=== PATIENT | female | born 1945 | race Caucasian/White ===

== ENCOUNTER 2020-04-25 16:43 | Emergency (ER) | payer MEDICARE, SELFPAY ==
[2020-04-25] VITALS (8 sets, daily range): BP systolic 163–197; BP diastolic 49–71; PULSE 54–67; RESP 12–20; TEMP 35.8; O2SAT 96–98
--- NOTE | ~2020-04-25 | CT_ITS ---
EXAMINATION: CT brain wo con EXAM DATE: 04/25/2020 18:28 INDICATION: Altered mental status. TECHNIQUE: Spiral CT of the head was performed without contrast. Axial, coronal and sagittal images were reviewed. The dose-length product (DLP) for this examination was 529.67 mGy-cm. The exposure w as tailored according to patient size, and iterative reconstruction (ASIR) was used as additional dos e reduction technique. There is no prior study for comparison. FINDINGS: There is no acute intraparenchymal hemorrhage. No evidence of intraparenchymal brain mass lesion. No evidence of acute infarction. Please note that initial head CT has limited sensitivity f or small or acute infarctions. There is mild to moderate periventricular and subcortical hypodensity, nonspecific but probably related to small vessel ischemic disease. There is mild to moderate promi nence of the sulci and ventricles related to cerebral atrophy. There is intracranial carotid arteri osclerosis. There are no extra-axial collections. There is no mass effect or midline shift. Patien t has had bilateral ocular lens surgery. Soft tissue is unremarkable. The visualized sinuses and ma stoid air cells are well aerated. IMPRESSION: 1. No acute intracranial findings. 2. Chronic age related findings. Reviewed, dictated and finalized at location A. LSMITH
--- NOTE | 2020-04-25 16:52 | ECG_ITS ---
Measurements Intervals [place] Rate: 57 P: 90 [place]: 188 QRS: 7 QRSD: 89 T: -74 QT: 426 QTc: 418 Interpretive Statements SINUS BRADYCARDIA BORDERLINE AV CONDUCTION DELAY CANNOT RULE OUT SEPTAL INFARCT, AGE INDETERMINATE ST-T WAVE ABNORMALITY IN INFERIOR LEADS- CONSIDER ISCHEMIA ABNORMAL ECG Electronically Signed On 04-25-2020 18:51:10 COMMUNICATIONS ATTENDANT by Niels Garcia D.O.
[2020-04-25 17:05] LABS: Basophils Absolute Auto 0.1 K/mm3 (0.0-0.1); Basophils Percent Auto 0.7 % (0.2-1.2); Eosinophils Absolute Auto 0.2 K/mm3 (0-0.3); Eosinophils Percent Auto 1.6 % (0-4.4); Hematocrit 41.7 % (37.0-47.0); Hemoglobin 13.2 g/dL (12.0-15.0); Immature Granulocyte Absolute 0.04 K/mm3 (0.00-0.031); Immature Granulocyte Percent A 0.3 % (0-0.5); Lymphocytes Absolute Auto 2.06 K/mm3 (0.9-3.2); Lymphocytes Percent Auto 17.3 % (18.3-44.2); Mean Corpuscular HGB Conc 31.7 g/dl (32-36); Mean Corpuscular Volume 88.5 fl (80-100); Mean Platelet Volume 11.9 fl (7.4-10.4); Monocytes Percent Auto 8.3 % (2.6-8.5); Neutrophils Absolute Auto 8.5 K/mm3 (1.3-6.7); Neutrophils Percent Auto 71.8 % (45.5-73.1); Platelet Count Result 218 k/mm3 (150-375); Red Blood Count 4.71 M/mm3 (4.2-5.4); Red Cell Distribution Width 13.2 % (11.5-14.5); White Blood Count 11.9 K/mm3 (4.5-10.0)
[2020-04-25 17:21] LABS: Alanine Aminotransferase 15 U/L (4-35); Albumin Level 4.6 g/dL (3.5-5.1); Alkaline Phosphatase 42 U/L (38-126); Anion Gap 9 mmol/L (8-16); Aspartate Amino Transferase 30 U/L (14-36); Bilirubin,Total 0.6 mg/dL (0.2-1.3); Blood Urea Nitrogen 14 mg/dL (7-17); Calcium 9.5 mg/dL (8.4-10.2); Carbon Dioxide 27 mmol/L (22-30); Chloride 106 mmol/L (98-107); Estimated CRCL calculation 35 ml/min; Estimated Glomerular Filt Rate 49; Glucose 51 mg/dL (65-105); Potassium 3.5 mmol/L (3.4-5.0); Sodium 142 mmol/L (137-145)
[2020-04-25] MEDS: DEXTROSE 50% 25 GM/50 ML SYRINGE IV PUSH (17:33)
--- NOTE | 2020-04-25 18:13 | ED.AMS ---
HPI - Altered Mental Status General Chief Complaint: Altered Mental Status Stated Complaint: ams Time Seen by Provider: 04/25/20 18:12 Source: patient Mode of arrival: ambulatory History of Present Illness HPI narrative: Patient 75-year-old female sent here from Dr. Zuñiga's clinic after he examined her and found her to be confused. Patient is normally alert and oriented x3. Per Dr. Zuñiga, she was not oriented to place and time, and was repeating herself . Brother states that he noticed the patient to be confused this morning. Upon arrival patient is alert and oriented x3, states that I think my blood sugar is low . Patient's blood sugar was checked on triage and it was 54. Patient was given amp of D50, on exam states that she is feeling better, family states that patient is back to her baseline self, alert and oriented x3. Patient currently has no complaints at this time. Patient denies any dizziness, headache, speech or visual disturbance, weakness, numbness, chest pain, shortness of breath, abdominal pain, nausea, vomiting, diarrhea, fever, chills or urinary symptoms. Related Data Home Medications Medication Instructions Recorded Confirmed acetaminophen 650 mg 1,300 mg PO Q12H tablet 11/19/19 04/08/20 tablet,extended release aspirin 81 mg tablet,delayed 81 mg PO DAILY 11/19/19 04/08/20 release cholecalciferol (vitamin D3) 125 125 mcg PO DAILY 11/19/19 04/08/20 mcg (5,000 unit) tablet dicyclomine 10 mg PO Q6H PRN 04/08/20 04/08/20 insulin NPH isoph U-100 human 36 unit SUBCUT BID 04/08/20 04/08/20 [Novolin N NPH U-100 Insulin] lisinopril 2.5 mg PO DAILY 04/08/20 04/08/20 Allergies Allergy/AdvReac Type Severity Reaction Status Date / Time bacitracin Allergy Intermediate FACE Verified 04/25/20 16:51 PUFFINESS neomycin Allergy Intermediate FACIAL Verified 04/25/20 16:51 PUFFINESS nickel Allergy Intermediate Unknown Verified 04/25/20 16:51 nystatin Allergy Intermediate FACIAL Verified 04/25/20 16:51 PUFFINESS polymyxin B Allergy Intermediate FACIAL Verified 04/25/20 16:51 PUFFINESS triamcinolone Allergy Intermediate Unknown Verified 04/25/20 16:51 Aminoglycosides Allergy Mild ANTIBIOTIC Verified 04/25/20 16:51 EAR DROP CAUSED RASH gramicidin D Allergy Mild FACE PUFFED Verified 04/25/20 16:51 latex Allergy Mild Rash W/ Verified 04/25/20 16:51 PROLONGED USE Review of Systems Review of Systems: All systems reviewed & are unremarkable except as noted in HPI and below Constitutional: Constitutional: Denies body ache(s), Denies chills, Denies excessive sweating, Denies fatigue, Denies fever(s), Denies headache(s), Denies lethargy, Denies malaise, Denies weakness and Denies weight loss Eyes: Eyes: Denies blurry vision, Denies change in vision and Denies loss of vision ENT: Denies dizziness, Denies ear discharge, Denies headache(s), Denies lip swelling, Denies epistaxis, Denies nasal congestion, Denies neck pain, Denies throat swelling and Denies tongue swelling Cardiovascular: Cardiovascular: Denies chest pain, Denies chest pain at rest, Denies chest pain with activity, Denies diaphoresis, Denies rapid heart rate, Denies edema, Denies irregular heart rhythm, Denies lightheadedness, Denies palpitations, Denies dyspnea and Denies dyspnea on exertion Respiratory: Respiratory: Denies chest congestion, Denies cough, Denies hemoptysis, Denies dyspnea and Denies dyspnea on exertion Gastrointestinal: Gastrointestinal: Denies abdominal pain, Denies melena, Denies hematochezia, Denies diarrhea, Denies nausea, Denies vomiting and Denies hematemesis Musculoskeletal: Musculoskeletal: Denies abnormal gait, Denies deformity, Denies joint swelling, Denies limited range of motion, Denies neck pain and Denies numbness Neurologic: Denies Abnormal speech present, Denies abnormal gait, Denies confusion, Denies dizziness, Denies headache(s), Denies focal weakness, Denies loss of vision, Denies numbne
[2020-04-25 18:24] LABS: Glucose Point of Care 164 (65-105)
--- NOTE | 2020-04-25 18:53 | PC.NURSE ---
pt eating dinner tray
--- NOTE | 2020-04-25 19:06 | PC.NURSE ---
Report to SUZANNE Beaulieu, to continue care.
[2020-04-25 20:31] LABS: Glucose Point of Care 276 (65-105)
[2020-04-25 20:38] LABS: Add Urine Microscopic? YES; Appearance Urine Cloudy (Clear); Bacteria Urine Trace /hpf; Bilirubin Urine Negative (Negative); Blood Urine Negative (Negative); Color Urine Yellow (Yellow); Glucose Urine UA 3+ mg/dL (Negative); Hyaline Casts Urine 30-49 /lpf; Ketones Urine Trace mg/dL (Negative); Leukocyte Esterase Ur 2+ LEU/UL (Negative); Mucus Urine Heavy /lpf; Nitrate Urine Negative (Negative); Protein Urine 3+ mg/dL (Negative); Renal Epithelial Cells Urine Rare /hpf (None Seen); Squamous Epithelial Cell Urine Many /hpf (Few); Urobilinogen Urine Negative mg/dL (<2.0); WBC Clumps Urine Present /HPF; WBC Urine 51-75 /hpf
[2020-04-25 20:41] LABS: Specific Grav Ur 1.035 (1.001-1.035)
[2020-04-25 21:40] LABS: Glucose Point of Care 269 (65-105)
== END 2020-04-25 22:00 | disposition home or self-care (01) ==
PROVIDERS: Emergency Provider Emergency Medicine; PCP Physician Assistant
DX: E11.649 Type 2 diabetes mellitus with hypoglycemia without coma (principal); R41.0 Disorientation, unspecified; N39.0 Urinary tract infection, site not specified; I10 Essential (primary) hypertension; Z87.891 Personal history of nicotine dependence; R00.1 Bradycardia, unspecified; R94.31 Abnormal electrocardiogram [ECG] [EKG]; Z79.82 Long term (current) use of aspirin; Z79.4 Long term (current) use of insulin
CPT/HCPCS: 36415; 70450; 80053; 81001; 82948; 85025; 87086; 87088; 93005; 96365; 96375; 99284; J0696

== ENCOUNTER 2020-09-12 12:19 | Outpatient (CLI) | payer MEDICARE, SELFPAY ==
--- NOTE | ~2020-09-12 | US_ITS ---
EXAMINATION: US carotid duplex BI DATE: 09/12/2020 13:16 INDICATION: Right carotid bruit. TECHNIQUE: Grayscale, color Doppler, and pulsed Doppler images of the cervical carotid arteries were obtained. The degree of vessel stenosis is placed in one of the following categories: normal, <50%, 5 0-69%, >=70% but less than near-occlusion, near-occlusion, or total occlusion. Note that percent sten osis relative to normal distal artery lumen diameter is indirectly measured from velocity measurement s as described by Hola, et al. Radiology 2003; 229:340-346. COMPARISON: Ultrasound 04/06/2011 FINDINGS: RIGHT: The right common carotid artery (CCA) peak systolic velocity (PSV) is 56 cm/s. The right internal car otid artery (ICA) PSV is 49 cm/s. The right ICA end-diastolic velocity (EDV) is 8 cm/s. The right ICA /CCA PSV ratio is 0.9. Grayscale and color Doppler images yield an estimate of <50% diameter reductio n from plaque in the ICA. There is antegrade flow in the right vertebral artery. LEFT: The left CCA PSV is 106 cm/s. The left ICA PSV is 127 cm/s. The left ICA EDV is 15 cm/s. The left ICA /CCA PSV ratio is 1.2. Grayscale and color Doppler images yield an estimate of >=50% diameter reducti on from plaque in the ICA. There is antegrade flow in the left vertebral artery. IMPRESSION: 1. <50% stenosis in the right internal carotid artery. 2. 50-69% stenosis in the left internal carotid artery. Reviewed, dictated and finalized at location A.
== END 2020-09-12 12:20 | disposition home or self-care (01) ==
PROVIDERS: PCP Physician Assistant; Visit Provider Internal Medicine Cardiovascular Disease
DX: R09.89 Other specified symptoms and signs involving the circulatory and respiratory systems (principal); I65.23 Occlusion and stenosis of bilateral carotid arteries
CPT/HCPCS: 93880

== ENCOUNTER 2020-10-14 01:42 | Day surgery (SDC) | payer MEDICARE, SELFPAY ==
[2020-10-13 12:27] VITALS: BMI 28.0
[2020-10-14 10:34] VITALS: BP 160/63; PULSE 64; RESP 15; TEMP 36.6; O2SAT 98; BMI 26.4
--- NOTE | 2020-10-14 11:07 | WPDHPUPDATE1 ---
History and Physical Update Update Date/Time: 10/14/20 11:07 History and Physical has been reviewed, including an updated exam of the patient. There are NO changes in the patient's condition. Risks, benefits, and alternatives have been discussed and questions answered. Patient agrees to proceed with procedure. HPI: Patient is a 75-year-old female with history of coronary artery disease, frequent falls, syncope and near syncope, diabetes mellitus, hypertension, history of CABG, chronic kidney disease with recent medical records supervisor due to syncope which revealed multiple 2.2nd pauses, frequent PVCs, nonsustained VT and transient junctional rhythm Referred for loop recorder implantation. Past medical history: See above social history: History tobacco abuse family history: CAD diabetes mellitus review of systems: All 12 systems reviewed. No recurrent syncope since last office visit examination: 97.8, 64, 15, 98% on room air, 160/63, 5 ft 3 in tall 158 lb 67.7 kg no apparent distress, nonfocal, alert and oriented x3 pleasant and cooperative lungs clear to auscultation regular rate and rhythm normal S1-S2 abdomen soft nontender no edema clubbing or cyanosis skin warm dry without rashes or bruising neurologic cranial nerves 2-12 grossly intact examination grossly nonfocal psychiatric mood, appropriate impression/plan of care: Recurrent near-syncope and syncope etiology unclear with concern for bradyarrhythmia. Loop recorder implantation for further evaluation today.
--- NOTE | 2020-10-14 11:28 | P.OPB_ITS ---
Procedure Note - Brief Procedure Note - Brief Date of procedure: 10/14/20 Pre-op diagnosis: syncope Post-op diagnosis: same Procedure performed: Brief history present illness: Patient is a Very pleasant 75-year-old female with past medical history significant for diabetes mellitus, CAD status post CABG, hypertension, dyslipidemia, chronic kidney disease, and recurrent near-syncope and syncope with a nuclear monitoring technician which revealed multiple 2.8 second pauses, frequent PVCs, and brief junctional rhythm referred for loop recorder implantation for further evaluation. After verbal and written informed consent was obtained from the patient risks, benefits, and alternatives explained in detail the patient agreed to proceed with the plan of care as outlined above. Patient was evaluated at bedside in the [facility] procedure room. Patient was placed the appropriate supine position. Left anterior chest wall was prepped and draped in the usual sterile fashion. Operators in appropriate sterile garb. The left 4th intercostal space was identified and marked. Utilizing approximately 27 cc of 1% subcutaneous lidocaine the left anterior chest wall was then locally anesthetized. After local anesthesia was achieved, 2 fingerbreadths left of the sternum at the 4th intercostal space was again identified and a 1 cm incision was made with the included skin punch tool. Following this, the Biotronik deployment device was introduced creating a tract subcutaneously at a 45 degree angle from the sternum. Once the device was in recommended position, it was unlocked and deployment plunger was pulled back fully resulting in delivery of the Biotronik Biomonitor IIIm loop recorder SN [id number]. The deployment device was then removed easily and without complication. Manual pressure was help per protocol for at least 10 minutes with satisfactory hemostasis. The device was then interrogated and revealed excellent fidelity and measured at 1.3 mV, device Payment Manager at bedside programmed for syncope and bradyarrhythmia detection. The incision was then approximated and closed using Exofin skin adhesive. The incision was then covered with a sterile dressing. Complications: None Surgeon: Tomas Zuñiga MD
--- NOTE | 2020-10-14 11:42 | SUR.OPER ---
Time out completed with all team members in procedure room. Local anesthetic injected under skin after site is marked. 27ml of Lidocaine. Device inserted. Manual pressure applied to site.
--- NOTE | 2020-10-14 11:56 | SUR.OPER ---
Pt tolerated procedure well. Manual pressure in progress.
--- NOTE | 2020-10-14 12:10 | SUR.OPER ---
manual pressure completed. No oozing or hematoma noted. Skin glue applied to close site. followed by large bandaid over site.
[2020-10-14 12:15] VITALS: BP 169/93; PULSE 60; RESP 15; O2SAT 95
--- NOTE | 2020-10-14 13:14 | SUR.OPER ---
Discharge instructions along with follow up appointment reviewed with patient w stated understanding. Drsg remains dry and intact with no signs of bleeding or hematoma. Discharge via wheelchair with sister in law to personal vehicle.
== END 2020-10-14 13:31 | disposition home or self-care (01) ==
PROVIDERS: PCP Physician Assistant; Visit Provider Internal Medicine Cardiovascular Disease
PROC: (CPT 33285; principal; 2020-10-14 11:30)
DX: R55 Syncope and collapse (principal); I25.10 Atherosclerotic heart disease of native coronary artery without angina pectoris; Z95.1 Presence of aortocoronary bypass graft; I12.9 Hypertensive chronic kidney disease with stage 1 through stage 4 chronic kidney disease, or unspecified chronic kidney disease; E11.22 Type 2 diabetes mellitus with diabetic chronic kidney disease; N18.9 Chronic kidney disease, unspecified
CPT/HCPCS: 33285; C1764

== ENCOUNTER 2021-03-10 12:23 | Outpatient (CLI) | payer MEDICARE, SELFPAY ==
--- NOTE | ~2021-03-10 | CT_ITS ---
EXAMINATION:CT lung screening DATE: 03/10/2021 12:51 INDICATION: Personal history of nicotine dependence. Smoker who quit 5 years ago with 80 pack year hi story. TECHNIQUE: Computed tomography (CT) of the chest was performed without intravenous contrast. Automate d exposure control and iterative reconstruction technique were employed. The dose-length product (DLP ) was 71.02 mGy-cm. COMPARISON: Chest CT 06/10/2018 FINDINGS: There are small pleural effusions. There is widespread septal thickening in the lungs with a peripheral and lower lung predominance with interval worsening. There is mild atelectasis in lingul a. Cardiomegaly is noted. There are coronary artery calcifications. There are changes of coronary art tylor bypass grafting. No pericardial effusion. There is an electronic implant in the subcutaneous fat in left anterior chest wall. There is a moderate-sized sliding hiatal hernia. There is severe thoraci c spondylosis. IMPRESSION: 1. Lung-RADS category 2S: Benign appearance or behavior. Continue annual screening with noncontrast l ow-dose chest CT in 12 months. 2. Mild pulmonary edema and small pleural effusions. 3. Moderate-sized sliding hiatal hernia. Reviewed, dictated and finalized at location B. WINDING SUPERVISOR IMPRESSION: 1. Lung-RADS category 2S: Benign appearance or behavior. Continue annual screen ing with noncontrast low-dose chest CT in 12 months. 2. Mild pulmonary edema and small pleural effusions. 3. Moderate-sized sliding hiatal hernia.
[2021-03-10 13:10] VITALS: PULSE 58; O2SAT 91
[2021-03-10 13:12] VITALS: PULSE 69; O2SAT 85
[2021-03-10 13:13] VITALS: O2SAT 86
[2021-03-10 13:14] VITALS: O2SAT 90
[2021-03-10 13:25] VITALS: PULSE 63; O2SAT 92
--- NOTE | 2021-03-10 13:59 | HOMEO2EVAL ---
Evaluation was performed at [facility] Home Oxygen Evaluation RC: Home Oxygen (O2) Evaluation Start: 03/10/21 13:57 Freq: Status: Active Protocol: RPE Activity Type Activity Date Activity User E-Sign Co-Sign Detail Recorded Client Recorded Date Recorded By Document 03/10/21 13:10 J CARLOS [id number] 03/10/21 13:59 J CARLOS Document 03/10/21 13:12 J CARLOS [id number] 03/10/21 13:59 J CARLOS Document 03/10/21 13:13 J CARLOS [id number] 03/10/21 13:59 [facility] Document 03/10/21 13:14 J CARLOS [id number] 03/10/21 13:59 J CARLOS Document 03/10/21 13:25 J CARLOS [id number] 03/10/21 13:59 J CARLOS 03/10/21 03/10/21 03/10/21 13:10 13:12 13:13 Home O2 Evaluation Test Phase Resting Exercise Exercise Oxygen Delivery Room Air Room Air Nasal Cannula Oxygen Flow Rate (L/min) 1 Pulse Oximetry (90-100 %) 91 85 L 86 L Pulse Rate (60-100 beats/min) 58 L 69 Ambulation Distance (feet) Home Oxygen Evaluation Comments Treatment Charges O2 Evaluation - Outpatient 03/10/21 03/10/21 13:14 13:25 Home O2 Evaluation Test Phase Exercise Resting Oxygen Delivery Nasal Cannula Room Air Oxygen Flow Rate (L/min) 2 Pulse Oximetry (90-100 %) 90 92 Pulse Rate (60-100 beats/min) 63 Ambulation Distance (feet) 250 Home Oxygen Evaluation Comments PT REQUIRES 2 L WITH ACTIVITY/ EXERTION Treatment Charges
--- NOTE | 2021-03-10 14:00 | PCRCNOTE ---
HOME O2 EVAL FAXED TO OFFICE STAFF, NEW SET UP FOR 2L WITH ACTIVITY. CURRENTLY ONLY HAS O2 AT NIGHT WITH SLEEP
--- NOTE | 2021-03-11 07:10 | WPDPFTINT ---
PFT Procedure Performed PFT Procedure Performed Spirometry with Pre/Post Bronchodilator Plethysmography (Lung Vol) Diffusing Cap (DLCO) Flow Vol Loop PFT Interpretation This is a pulmonary function test with pre and post-bronchodilator spirometry, plethysmography and diffusing capacity. The test was performed and results interpreted in accordance with the 2019 and 2005 ATS/ERS Task Force guidelines respectively using the Global Lung Function Initiative-2012 reference equations. Patient demonstrated good effort and cooperation. Reproducibility criteria were met. The quality of the pre bronchodilator spirometry maneuver was Grade A and post bronchodilator spirometry maneuver was Grade A. Findings: Spirometry: There is decreased maximal expiratory airflow at low lung volumes with a concave expiratory flow tracing. The pre bronchodilator FVC is 1.53 L, 66% predicted. The pre bronchodilator FEV1 is 1.08 L, 60% predicted. The FEV1: FVC ratio 70%. The post bronchodilator FVC is 1.53 L, representing no change. The post bronchodilator FEV1 is 1.12 L, representing a 4% increase. The post bronchodilator FEV1: FVC ratio 73%. Plethysmography: The total lung capacity is 2.98 L, 67% predicted. Functional residual capacity is 1.72 L, 68% predicted. The residual volume is 1.37 L, 66% predicted. Diffusing capacity: The absolute diffusion capacity is 8.3, 45% predicted. The diffusing capacity corrected for alveolar volume is 3.81, 87% predicted. Impression: There is a combined obstructive and restrictive ventilatory abnormality. There are no guidelines to assign the severity of obstruction and restriction with a combined abnormality. In my opinion, given the mildly concave expiratory flow tracing and low normal FEV1: FVC ratio and mild restrictive abnormality I would state there is a mild obstructive abnormality and a mild restrictive abnormality resulting in a moderately decreased FEV1. There is no significant improvement after inhaling a single dose of albuterol. The absolute diffusing capacity is moderately decreased and normalizes when corrected for alveolar volume. There are no prior studies for comparison
== END 2021-03-10 12:24 | disposition home or self-care (01) ==
PROVIDERS: PCP Internal Medicine; Visit Provider Internal Medicine Pulmonary Disease
DX: Z12.2 Encounter for screening for malignant neoplasm of respiratory organs (principal); Z87.891 Personal history of nicotine dependence
CPT/HCPCS: 71271; 94060; 94618; 94726; 94729

== ENCOUNTER 2021-03-11 10:04 | Outpatient (CLI) | payer MEDICARE, SELFPAY ==
[2021-03-11 11:32] LABS: Rheumatoid Factor < 8.6 IU/ML (<12)
[2021-03-14 17:30] LABS: ANA Cascade Screen Negative (Negative)
[2021-03-14 22:38] LABS: ANCA Screen Negative (Negative)
[2021-03-16 12:46] LABS: Anti Cyclic Citrullinated Pept <16 Units (<20)
== END 2021-03-11 10:05 | disposition home or self-care (01) ==
PROVIDERS: PCP Internal Medicine; Visit Provider Internal Medicine Pulmonary Disease
DX: R06.00 Dyspnea, unspecified (principal); J84.9 Interstitial pulmonary disease, unspecified
CPT/HCPCS: 36415; 86021; 86038; 86200; 86331; 86430; 86606; 86609

== ENCOUNTER 2021-04-27 08:55 | Outpatient (CLI) | payer MEDICARE, SELFPAY ==
--- NOTE | 2021-05-04 21:20 | WPDSLEEPSTUD ---
Sleep Study Date of Study: 04/27/21 <Mercedes Guan DO - Last Filed: 05/05/21 15:15> Ordering Provider: Lobo Marin MD <Mercedes Guan DO - Last Filed: 05/05/21 15:15> Interpreting Physician: Mercedes Guan DO <Mercedes Guan DO - Last Filed: 05/05/21 15:15> Sleep Study Type: Split Polysomnogram <Mercedes Guan DO - Last Filed: 05/05/21 15:15> Height: 1.52 m <Mercedes Guan DO - Last Filed: 05/05/21 15:15> Weight: 62.596 kg <Mercedes Guan DO - Last Filed: 05/05/21 15:15> Body Mass Index: 26.9 <Mercedes Guan DO - Last Filed: 05/05/21 15:15> Neck Circumference (inches): 14.5 <Mercedes Guan DO - Last Filed: 05/05/21 15:15> [place]: 9 <Mercedes Guan DO - Last Filed: 05/05/21 15:15> Reason for Sleep Study Daytime hypersomnia, nocturnal hypoxemia <Mercedes Guan DO - Last Filed: 05/05/21 15:15> Sleep History The patient is a 76 y/o female with HTN, COPD, Type 2 diabetes, severe pulmonary hypertension, coronary artery disease, valvular heart disease, depression, anxiety and history of tobacco use that had a sleep study ordered by her masking machine feeder due to nocturnal hypoxemia. The patient occasionally awakens at night with heartburn, belching or cough. She occasionally snores. She rarely has trouble sleeping when she has a cold. She denies waking up gasping for air throughout the night. She denies having breathing problems at night observed by others. She rarely sweats excessively at night. She rarely notices heart palpitations or irregular heartbeats during the night. She frequently falls asleep during the day but never while driving. She denies sleep paralysis, cataplexy and hypnagogic / hypnopompic hallucinations. She denies having nightmares. She occasionally has thoughts racing through her mind. She occasionally feels sad or depressed. She occasionally has anxiety. She rarely notices parts of her body jerk. She denies kicking throughout the night. She occasionally has crawling aching feelings in her legs as well as leg pain during the night. She denies grinding her teeth during sleep and awakening with morning jaw pain. She is occasionally bothered by pain during the day and occasionally awakened by pain during the night. She rarely wakes up feeling stiff in the morning. She rarely wakes up with [place] achy muscles. She occasionally wakes up with pain in the neck, spine and other joints. She goes to bed at 11:00 p.m. on weekdays and midnight on the weekends. It takes her at least an hour to fall asleep. She wakes up once or twice throughout the night for unknown reasons. When she awakens, she will try to go back to sleep. It takes her about an hour to fall back asleep. She wakes up between 7 and 8:00 a.m. on both weekdays and weekends. She typically gets between 8 and 9 hours of sleep per night. She does not stay in bed long after waking up in the morning. She currently lives alone. She denies consuming any caffeinated beverages and within 2 hours of bedtime. She does not engage in physical exercise before bedtime. She will read and watch television before falling asleep. She does take naps in the afternoon or the evening but they are not refreshing. She drinks 1 caffeinated beverage per day. She denies tobacco, alcohol and recreational drug use. <Mercedes Guan DO - Last Filed: 05/05/21 15:15> [facility] Past Medical History Medical History: Medical History Benign tumor Carpal tunnel syndrome, bilateral upper limbs COPD (chronic obstructive pulmonary disease) Hypertension Type 2 diabetes mellitus with hyperglycemia <Mercedes Guan DO - Last Filed: 05/05/21 15:15> Surgical History Surgical History: Surgical History History of appendectomy His
[2021-05-05 15:15] VITALS: BMI 26.9
== END 2021-04-28 06:49 | disposition home or self-care (01) ==
PROVIDERS: PCP Internal Medicine; Visit Provider Internal Medicine Pulmonary Disease
DX: G47.33 Obstructive sleep apnea (adult) (pediatric) (principal); G47.10 Hypersomnia, unspecified; R94.2 Abnormal results of pulmonary function studies
CPT/HCPCS: 95811

== ENCOUNTER 2021-05-30 13:52 | Observation (INO) | payer MEDICARE, SELFPAY ==
--- NOTE | ~2021-05-30 | XR_ITS ---
EXAMINATION: XR hip RT 2V w AP pelvis DATE: 05/30/2021 14:44 INDICATION: Right hip pain. Fall. TECHNIQUE: An anteroposterior view of the pelvis and 2 views of right hip were obtained. COMPARISON: None. FINDINGS: Bone alignment is normal. There is a fracture of the greater trochanter of proximal right f emur with 3 mm displacement. There is mild osteoarthritis of the hips. There is severe lower lumbar s pondylosis. IMPRESSION: 1. Fracture of greater trochanter of proximal right femur. 2. Mild osteoarthritis of the hips. Reviewed, dictated and finalized at location E. TRUCTION PROJECT MANAGER
--- NOTE | ~2021-05-30 | XR_ITS ---
EXAMINATION: XR knee RT 3V DATE: 05/30/2021 14:44 INDICATION: Right knee pain. Fall. TECHNIQUE: 3 views of right knee were obtained. COMPARISON: None. FINDINGS: Bone alignment is normal. No fracture. There is moderate osteoarthritis of medial compartme nt and mild osteoarthritis of lateral and patellofemoral compartments. No knee joint effusion. IMPRESSION: 1. Moderate right knee osteoarthritis. Reviewed, dictated and finalized at location E. ITTER CABIN
--- NOTE | ~2021-05-30 | US_ITS ---
EXAMINATION: US carotid duplex BI DATE: 06/01/2021 13:39 INDICATION: Syncope. TECHNIQUE: Grayscale, color Doppler, and pulsed Doppler images of the cervical carotid arteries were obtained. The degree of vessel stenosis is placed in one of the following categories: normal, <50%, 5 0-69%, >=70% but less than near-occlusion, near-occlusion, or total occlusion. Note that percent sten osis relative to normal distal artery lumen diameter is indirectly measured from velocity measurement s as described by Hola, et al. Radiology 2003; [id number]:[id number]. COMPARISON: Ultrasound 09/12/2020 FINDINGS: RIGHT: The right common carotid artery (CCA) peak systolic velocity (PSV) is 178 cm/s. The right internal ca rotid artery (ICA) PSV is 67 cm/s. The right ICA end-diastolic velocity (EDV) is 11 cm/s. The right I CA/CCA PSV ratio is 0.4. Grayscale and color Doppler images yield an estimate of <50% diameter reduct ion from plaque in the ICA. There is antegrade flow in the right vertebral artery. LEFT: The left CCA PSV is 108 cm/s. The left ICA PSV is 149 cm/s. The left ICA EDV is 10 cm/s. The left ICA /CCA PSV ratio is 1.4. Grayscale and color Doppler images yield an estimate of <50% diameter reductio n from plaque in the ICA. There is antegrade flow in the left vertebral artery. IMPRESSION: 1. <50% stenosis in the right internal carotid artery. 2. <50% stenosis in the left internal carotid artery. Reviewed, dictated and finalized at location A. ONAL MERCHANDISING MANAGER
--- NOTE | ~2021-05-30 | XR_ITS ---
EXAMINATION: XR chest 1V portable DATE: 05/30/2021 17:14 INDICATION: Chest pain. TECHNIQUE: A single frontal view of the chest was obtained. COMPARISON: Chest 2 views 06/10/2018, chest CT 03/10/2021 FINDINGS: There is a diffuse interstitial pattern in the lungs, consistent with mild pulmonary edema. No pleural effusion or pneumothorax. Cardiomegaly is noted. Median sternotomy wires are noted. There is an electronic implant overlying left chest. IMPRESSION: 1. Mild pulmonary edema. 2. Cardiomegaly. Reviewed, dictated and finalized at location E. UNT CLASSIFICATION CLERK
[2021-05-30 13:59] VITALS: BP 162/66; PULSE 70; RESP 18; TEMP 36.4; O2SAT 97
--- NOTE | 2021-05-30 14:48 | ED.FALL ---
HPI - Fall General Chief Complaint: Fall Stated Complaint: fall, right hip pain Time Seen by Provider: 05/30/21 13:56 Source: patient Mode of arrival: wheelchair Limitations: no limitations History of Present Illness HPI Narrative: Patient is a 76-year-old female complaining of right hip and right knee pain after she lost her balance and fell backwards 3 days ago. Patient states her pain is mild, worse with movement and walking. Patient states that she was able to stand up with the help of a relative, and walk with her walker. Patient denies any head, neck, chest, abdomen, back or any other extremity pain/injury. Related Data Home Medications Medication Instructions Recorded Confirmed acetaminophen 650 mg 1,300 mg PO Q12H tablet 11/19/19 04/08/21 tablet,extended release aspirin 81 mg tablet,delayed 81 mg PO DAILY 11/19/19 04/08/21 release cholecalciferol (vitamin D3) 125 125 mcg PO DAILY 11/19/19 04/08/21 mcg (5,000 unit) tablet dicyclomine 10 mg PO Q6H PRN 04/08/20 04/08/21 insulin NPH isoph U-100 human 20 unit SUBCUT [facility] 04/08/20 04/08/21 [Novolin N NPH U-100 Insulin] Allergies Allergy/AdvReac Type Severity Reaction Status Date / Time bacitracin Allergy Intermediate FACE Verified 05/30/21 14:04 PUFFINESS neomycin Allergy Intermediate FACIAL Verified 05/30/21 14:04 PUFFINESS nickel Allergy Intermediate Unknown Verified 05/30/21 14:04 nystatin Allergy Intermediate FACIAL Verified 05/30/21 14:04 PUFFINESS polymyxin B Allergy Intermediate FACIAL Verified 05/30/21 14:04 PUFFINESS triamcinolone Allergy Intermediate Unknown Verified 05/30/21 14:04 Aminoglycosides Allergy Mild ANTIBIOTIC Verified 05/30/21 14:04 EAR DROP CAUSED RASH gramicidin D Allergy Mild FACE PUFFED Verified 05/30/21 14:04 latex Allergy Mild Rash W/ Verified 05/30/21 14:04 PROLONGED USE Review of Systems Review of Systems: All systems reviewed & are unremarkable except as noted in HPI and below Constitutional: Constitutional: Denies body ache(s), Denies chills, Denies excessive sweating, Denies fatigue, Denies fever(s), Denies headache(s), Denies lethargy, Denies malaise, Denies weakness and Denies weight loss Eyes: Eyes: Denies blurry vision, Denies change in vision and Denies loss of vision ENT: Denies dizziness, Denies ear discharge, Denies headache(s), Denies lip swelling, Denies epistaxis, Denies nasal congestion, Denies neck pain, Denies throat swelling and Denies tongue swelling Cardiovascular: Cardiovascular: Denies chest pain, Denies chest pain at rest, Denies chest pain with activity, Denies diaphoresis, Denies rapid heart rate, Denies edema, Denies irregular heart rhythm, Denies lightheadedness, Denies palpitations, Denies dyspnea and Denies dyspnea on exertion Respiratory: Respiratory: Denies chest congestion, Denies cough, Denies hemoptysis, Denies dyspnea and Denies dyspnea on exertion Gastrointestinal: Gastrointestinal: Denies abdominal pain, Denies melena, Denies hematochezia, Denies diarrhea, Denies nausea, Denies vomiting and Denies hematemesis Musculoskeletal: Musculoskeletal: Denies deformity, Denies joint swelling, Denies neck pain and Denies numbness Neurologic: Denies Abnormal speech present, Denies abnormal gait, Denies confusion, Denies dizziness, Denies headache(s), Denies focal weakness, Denies loss of vision, Denies numbness, Denies Other visual disturbances, Denies Sensory deficit (Neuro) and Denies weakness Psychiatric: Psychiatric: Denies confusion, Denies depression, Denies auditory hallucinations, Denies homicidal ideation and Denies suicidal ideation Endocrine: Endocrine: Denies cold intolerance, Denies excessive sweating, Denies fatigue, Denies heat intolerance and Denies palpitations Hematologic/Lymphatic: Hematologic/Lymphatic: Denies easy bleeding and Denies easy bruising Allergic/Immunologic: Allergic/Immunologic: Denies lip swelling, Denies throat swelling and Rafi
[2021-05-30] MEDS: KETOROLAC 30 MG/ML VIAL (*BKC) 15 MG IM (15:03)
[2021-05-30] MEDS: ACETAMINOPHEN 325 MG TABLET 650 MG PO (15:04)
[2021-05-30 16:00] VITALS: BP 149/62; PULSE 66; RESP 18; O2SAT 96
--- NOTE | 2021-05-30 16:56 | ECG_ITS ---
Measurements Intervals [place] Rate: 84 P: 76 ND: 165 QRS: -16 QRSD: 95 T: 47 QT: 372 QTc: 441 Interpretive Statements SINUS RHYTHM MINIMAL Q WAVES- HIGH LATERAL LEADS BORDERLINE ECG Electronically Signed On 05-30-2021 20:09:42 DIRECTOR INTERNAL AUDIT by Niels Garcia D.O.
[2021-05-30 17:24] LABS: Basophils Absolute Auto 0.1 K/mm3 (0.0-0.1); Basophils Percent Auto 0.6 % (0.2-1.2); Eosinophils Absolute Auto 0.1 K/mm3 (0-0.3); Eosinophils Percent Auto 1.5 % (0-4.4); Hematocrit 35.6 % (37.0-47.0); Hemoglobin 11.5 g/dL (12.0-15.0); Immature Granulocyte Absolute 0.02 K/mm3 (0.00-0.031); Immature Granulocyte Percent A 0.3 % (0-0.5); Lymphocytes Absolute Auto 0.99 K/mm3 (0.9-3.2); Lymphocytes Percent Auto 12.5 % (18.3-44.2); Mean Corpuscular HGB Conc 32.3 g/dl (32-36); Mean Corpuscular Hemoglobin 28.8 pg (26-34); Mean Platelet Volume 12.3 fl (7.4-10.4); Monocytes Absolute Auto 0.8 K/mm3 (0.1-0.6); Monocytes Percent Auto 9.8 % (2.6-8.5); Neutrophils Percent Auto 75.3 % (45.5-73.1); Platelet Count Result 126 k/mm3 (150-375); Red Cell Distribution Width 13.7 % (11.5-14.5); White Blood Count 7.9 K/mm3 (4.5-10.0)
[2021-05-30 17:33] LABS: Anion Gap 3 mmol/L (8-16); Blood Urea Nitrogen 12 mg/dL (7-17); Calcium 9.2 mg/dL (8.4-10.2); Carbon Dioxide 28 mmol/L (22-30); Chloride 103 mmol/L (98-107); Estimated CRCL calculation 43 ml/min; Estimated Glomerular Filt Rate > 60; Glucose 123 mg/dL (65-110); Potassium 3.8 mmol/L (3.4-5.0); Sodium 134 mmol/L (137-145)
[2021-05-30 17:45] VITALS: BP 175/78; PULSE 64; RESP 18; O2SAT 97
[2021-05-30] MEDS: LACTATED RINGERS 1,000 ML 80 ML IV CONT (18:06)
--- NOTE | 2021-05-30 18:45 | ADMGEN ---
This patient, Beatris Barrientos, was admitted to 2 Medical Room 255-01. Patient/family oriented to hospital policies and general routines including ID bracelet, bed and alarms, visiting hours, pain management, procedures, bathroom and other care routines, personal items, smoking policy, room service/diet, and visiting hours. Information on how to activate the Rapid Response Team has been discussed. Patient/Family are encouraged to report perceived risks to care and to ask questions if they do not understand what they are told or what they should do.
[2021-05-30 19:26] VITALS: BP 157/48; PULSE 67; RESP 19; TEMP 36.4; O2SAT 97
--- NOTE | 2021-05-30 23:55 | PM.IMHP ---
H&P: HPI History of Present Illness Date/Time: 05/30/21 23:55 this is a 76-year-old female patient who has a loop recorder. The patient stated that she has a history of passing out. She does see Dr. Glaser as her hog tender. The patient came to the emergency room because of a fall. She was complaining of right hip pain and right knee pain. She has a right elbow abrasion as well. The patient stated that she lost her balance but did not pass out. She stated she did not hit her head. She stated that she fell backwards approximately 3 days ago. She was walking with a cane and that the pain was mild but worse with movement and walking. She was able to stand up with help of her relative and walk with a walker. She denied any other injuries than the ones mentioned above. She is alert and orientated x3. She is not on any blood thinners and denies hitting her head. Since the patient is alert orientated x3 and this occurred [address] of the brain was opted out at this time. Chest x-ray was read as mild pulmonary edema. Cardiomegaly. Knee x-ray was read as moderate right knee osteoarthritis. Hip and pelvis x-ray was read as fracture of greater trochanter of proximal right femur. Mild osteoarthritis of the hips. H&H 11.5 and 35.6. Patient's blood sugars 123. Ortho has been consulted. The patient is being admitted to observation on the date of service of 05/31/2021. Chief Complaint: Fall with right hip pain Review of Systems Review of Systems: All systems reviewed & are unremarkable except as noted in HPI and below Constitutional: Constitutional: Reports as per HPI and Reports no additional constitutional complaints Eyes: Eyes: Reports as per HPI and Reports no additional eye complaints ENT: Reports system reviewed and no additional complaints, except as documented and Reports Normal hearing present Cardiovascular: Cardiovascular: Reports no additional cardiovascular complaints Respiratory: Respiratory: Reports no additional respiratory complaints and Reports no additional respiratory complaints Gastrointestinal: Gastrointestinal: Reports as per HPI and Reports no additional gastrointestinal complaints Musculoskeletal: Musculoskeletal: Reports no additional musculoskeletal complaints Integumentary/Breasts: Skin/Breast: Reports system reviewed and no additional complaints, except as docu and Reports as per HPI Neurologic: Reports system reviewed and no additional complaints, except as documented, Reports as per HPI and Reports Normal hearing present Psychiatric: Psychiatric: Reports no additional psychiatric complaints and Reports as per HPI Endocrine: Endocrine: Reports no additional endocrine complaints Hematologic/Lymphatic: Hematologic/Lymphatic: Reports no additional hematologic/lymphatic complaints Allergic/Immunologic: Allergic/Immunologic: Reports no additional allergic/immunologic complaints [facility] Past Medical History Medical History (Updated 05/31/21 @ 00:04 by Lita Gonzalez NP) Benign tumor Care for low for the OR heart av [place] get injection placed a phone whole graft chest Foot ALL RA can restart her she could start her 1 g 24 hours a I for primary told me to come in likes to told me it noon and chest x-ray hernia. Today the HR take the patient's C1 patient the day after leave at 1:30 a.m. get the pager back the police the calices like a show when she tells just some the entire work 1 of the year what lysis and also like I can admit acute I can admit I the FMLA 5 ft the new file for FMLA but after me appoint for 12 months for FMLA with Carpal tunnel syndrome, bilateral upper limbs COPD (chronic obstructive pulmonary disease) Hypertension Type 2 diabetes mellitus with hyperglycemia Surgical History Surgical History (Updated 05/31/21 @ 00:16 by Lita Gonzalez NP) History of appendectomy History of carpal tunnel release History of cholecystectomy History of loop recorder History of quadruple by
[2021-05-31] VITALS (7 sets, daily range): BP systolic 142–176; BP diastolic 60–78; PULSE 72–76; RESP 14–20; TEMP 36.4–36.9; O2SAT 93–96
[2021-05-31 00:09] LABS: Glucose Point of Care 215 mg/dl (65-105)
[2021-05-31 00:53] LABS: Add Urine Microscopic? YES; Appearance Urine Clear (Clear); Bilirubin Urine Negative (Negative); Blood Urine Negative (Negative); Color Urine Yellow (Yellow); Glucose Urine UA Negative (Negative); Ketones Urine Negative (Negative); Leukocyte Esterase Ur Negative LEU/UL (NEGATIVE); Mucus Urine Rare /lpf; Nitrate Urine Negative (Negative); Protein Urine 3+ mg/dL (Negative); RBC Urine 0-2 /hpf (0-2); Specific Grav Ur 1.016 (1.001-1.035); Squamous Epithelial Cell Urine Few /hpf (Few); Urobilinogen Urine Negative mg/dL (<2.0)
[2021-05-31 05:09] LABS: Basophils Percent Auto 0.5 % (0.2-1.2); Eosinophils Absolute Auto 0.2 K/mm3 (0-0.3); Eosinophils Percent Auto 2.4 % (0-4.4); Hematocrit 32.9 % (37.0-47.0); Hemoglobin 10.7 g/dL (12.0-15.0); Immature Granulocyte Absolute 0.02 K/mm3 (0.00-0.031); Immature Granulocyte Percent A 0.3 % (0-0.5); Lymphocytes Absolute Auto 0.89 K/mm3 (0.9-3.2); Lymphocytes Percent Auto 14.2 % (18.3-44.2); Mean Corpuscular HGB Conc 32.5 g/dl (32-36); Mean Corpuscular Hemoglobin 28.3 pg (26-34); Mean Platelet Volume 12.5 fl (7.4-10.4); Monocytes Absolute Auto 0.7 K/mm3 (0.1-0.6); Monocytes Percent Auto 11.2 % (2.6-8.5); Neutrophils Absolute Auto 4.5 K/mm3 (1.3-6.7); Neutrophils Percent Auto 71.4 % (45.5-73.1); Platelet Count Result 118 k/mm3 (150-375); Red Blood Count 3.78 M/mm3 (4.2-5.4); Red Cell Distribution Width 13.7 % (11.5-14.5); White Blood Count 6.3 K/mm3 (4.5-10.0)
[2021-05-31 05:28] LABS: Alanine Aminotransferase 11 U/L (4-35); Albumin Level 3.6 g/dL (3.5-5.1); Alkaline Phosphatase 39 U/L (38-126); Anion Gap 7 mmol/L (8-16); Aspartate Amino Transferase 21 U/L (14-36); Bilirubin,Total 0.8 mg/dL (0.2-1.3); Blood Urea Nitrogen 14 mg/dL (7-17); CRP 4.5 mg/dL (<1.0); Carbon Dioxide 28 mmol/L (22-30); Chloride 100 mmol/L (98-107); Estimated CRCL calculation 43 ml/min; Estimated Glomerular Filt Rate > 60; Glucose 156 mg/dL (65-110); Lactate Dehydrogenase 661 U/L (313-618); Lipase 44 U/L (23-300); Magnesium 1.6 mg/dL (1.6-2.3); Potassium 3.8 mmol/L (3.4-5.0); Sodium 135 mmol/L (137-145)
[2021-05-31] MEDS: HYDROmorphone HCL INJ (*CRX) 1 MG/ML SYR 0.5 MG IV PUSH ×2 (05:36→21:31)
[2021-05-31] MEDS: LACTATED RINGERS 1,000 ML 80 ML IV CONT (05:38)
[2021-05-31] MEDS: UMECLIDINIUM/VILANTEROL 62.5-25 MCG ELLIPTA 1 PUFF INHALATION (07:31)
[2021-05-31 08:03] LABS: Glucose Point of Care 169 mg/dl (65-105)
[2021-05-31] MEDS: buPROPion HCL 75 MG TABLET PO ×2 (08:13→21:32)
[2021-05-31] MEDS: LOSARTAN POTASSIUM 100 MG TABLET PO (08:13)
[2021-05-31] MEDS: CHOLECALCIFEROL 1,000 UNITS TABLET 5000 UNITS PO (08:13)
--- NOTE | 2021-05-31 08:24 | PM.CNCAR ---
Assessment and Plan Assessment and plan (1) Recurrent falls: Code(s): R29.6 - Repeated falls Status: Acute Assessment and Plan: the patient has had recurrent falls, and relates 2 episodes of syncope in the past couple of years. She does admit to dizziness and balance problems. Status post loop recorder, which is not shown any bradycardia or pauses. It is likely that her falls are related to poor balance, although we have not checked for orthostasis. She once had hypoglycemia so that may be a contributing factor. She also apparently was taking her metoprolol t.i.d. instead of b.i.d. so that may have contributed. She has carotid disease which may make her more sensitive to drops in blood pressure as well. (2) Preoperative cardiovascular examination: Code(s): Z01.810 - Encounter for preprocedural cardiovascular examination Status: Acute Assessment and Plan: If the patient does need ORIF, I think she is a reasonable candidate with a moderate perioperative risk based on her comorbidities ( CAD and chronic lung disease ). Will check an EKG. (3) CAD (coronary artery disease): Code(s): I25.10 - Atherosclerotic heart disease of [place] coronary artery without angina pectoris Status: Acute Assessment and Plan: Remote CABG, no angina. Stable. Continue aspirin, statin therapy etc.. Continue metoprolol. (4) Primary hypertension: Code(s): I10 - Essential (primary) hypertension Status: Acute Assessment and Plan: BP running high here. Better high than low, in this patient with dizziness however. When patient is more mobile and ambulatory we will need to check for orthostasis. 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 (6) Atherosclerosis of both carotid arteries: Code(s): I65.23 - Occlusion and stenosis of bilateral carotid arteries Status: Acute Assessment and Plan: Bilateral carotid disease. Continue aspirin, statin therapy. History of Present Illness History of Present Illness Consult date/time: 05/31/21 08:24 Requesting physician: Lita Gonzalez NP Consult reason: pre-op evaluation Reason For Visit: R femur fracture, greater troch Narrative: Demetrio Barrientos This 76-year-old female whom we were asked to see for falls vs syncope, possible need for surgery and pre-op clearance, at the request hospitalists in consultation. She fell a few days ago and has suffered a right femur fracture. Ms. Barrientos is followed in our office by Dr. Zuñiga. She has a history of CAD and CABG in 2002, Dizziness and recurrent falls, h/o syncope, status post loop recorder, hypertension, COPD followed by pulmonary, diabetes, hyperlipidemia, pulmonary hypertension, PFO , moderate carotid disease. Her loop recorder was last interrogated in April 2021 and has been unremarkable, with no pauses or severe bradycardia recorded. Patient stated she lost her balance and fell backwards a few days ago and has had some right hip pain since then. She denies blacking out. Of note, she apparently was taking her metoprolol 100 mg TID instead of BID. She has some chronic BANKS. She wears oxygen at night and is being evaluated for CPAP. She has had no angina. No PND, orthopnea, edema. She states she has fallen several times in the last 3 months and her [id number] thinks she needs to go to a usp. Once when she came to see Dr. Zuñiga she had mental status changes is was sent to the emergency room, and found to be hypoglycemic. Echo etc as below. Review of Systems Constitutional: Constitutional: Reports weakness Eyes: Eyes: Reports blurry vision Comments: Diabetic retinopathy ENT: Denies epistaxis Cardiovascular: Cardiovascular: Denies chest pain, Denies pedal edema, Denies leg edema, Reports lightheaded
--- NOTE | 2021-05-31 08:54 | PM.IMPN ---
Progress Note: A&P Assessment and Plan (1) Closed fracture of greater trochanter of femur: Qualifiers: Encounter type: initial encounter Fracture alignment: displaced Laterality: right Qualified Code(s): S72.111A - Displaced fracture of greater trochanter of right femur, initial encounter for closed fracture Code(s): S72.113A - Displaced fracture of greater trochanter of unspecified femur, initial encounter for closed fracture Status: Acute Assessment and Plan: Conservative management Pain control Orthopedic consult (2) SAHARA (obstructive sleep apnea): Code(s): G47.33 - Obstructive sleep apnea (adult) (pediatric) Status: Acute Assessment and Plan: Titrating CPAP has been ordered. (3) COPD (chronic obstructive pulmonary disease): Code(s): J44.9 - Chronic obstructive pulmonary disease, unspecified Status: Acute Assessment and Plan: Continue with home inhalers. (4) Hyperlipidemia: Qualifiers: Hyperlipidemia type: unspecified Qualified Code(s): E78.5 - Hyperlipidemia, unspecified Code(s): E78.5 - Hyperlipidemia, unspecified Status: Acute Assessment and Plan: Continue with atorvastatin. 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 Resume home medication. (6) Depression with anxiety: Code(s): F41.8 - Other specified anxiety disorders Status: Acute Assessment and Plan: Celexa (7) Primary hypertension: Code(s): I10 - Essential (primary) hypertension Status: Acute Assessment and Plan: Continue with metoprolol. Losartan (8) Near syncope: Code(s): R55 - Syncope and collapse Status: Acute Assessment and Plan: Patient has loop monitor cardiology was consulted Subjective Date/time seen: 05/31/21 08:54 Interval history: Patient seen and examined Patient feels weak Greater trochanteric fracture conservative management Patient denies fever headache chest pain shortness of breath I am seeing the patient for fall Exam Narrative: Alert Chest no wheeze crackles Abdomen nontender nondistended CVS S1 + S2 Lower extremity edema Objective Data Vital Signs Vital Signs: Vital Signs - 24 hr 05/30/21 13:59 05/30/21 16:00 05/30/21 17:45 Temperature 97.6 F Pulse Rate 70 66 64 Respiratory Rate 18 18 18 Blood Pressure 162/66 H 149/62 H 175/78 H Pulse Oximetry 97 96 97 05/30/21 19:26 05/31/21 03:53 Temperature 97.5 F L 97.6 F Pulse Rate 67 76 Respiratory Rate 19 18 Blood Pressure 157/48 H 176/66 H Pulse Oximetry 97 94 Intake/Output Intake/Output: Intake & Output 05/28/21 05/29/21 05/30/21 05/31/21 23:59 23:59 23:59 23:59 Intake Total 1222 Output Total 300 Balance 922 Meds/Results Medications: Active Medications Generic Name Dose Route Start Last Admin Trade Name Freq PRN Reason Stop Dose Admin Albuterol 2 puff 05/31/21 00:16 Albuterol Sulfate (*Sp) Aerosol 1 Puff INHALATION Q4H PRN shortness of breath or wheezing Atorvastatin Calcium 10 mg 05/31/21 00:20 05/31/21 03:49 Atorvastatin 10 Mg Tablet PO Not Given HS ROSY Bupropion HCl 75 mg 05/31/21 00:40 05/31/21 08:13 Bupropion Hcl 75 Mg Tablet PO 75 mg Q12HR ROSY Administration Citalopram Hydrobromide 10 mg 05/31/21 00:40 05/31/21 03:49 Citalopram Hydrobromide 10 Mg Tablet PO Not Given HS ROSY Dextrose 12.5 gm 05/31/21 00:18 Dextrose 50% 25 Gm/50 Ml Syringe IV PUSH PRN PRN Hypoglycemia Protocol Dicyclomine HCl 10 mg 05/31/21 00:16 Dicyclomine Hcl 10 Mg Capsule PO Q6H PRN Spasms Furosemide 20 mg 05/31/21 00:16 Furosemide 20 Mg Tablet PO DAILY PRN swelling Glucagon 1 mg 05/31/21 00:18 Glucagon For Inj 1 Mg Vial IM PRN PRN Hypoglycemia Protocol Glucose 15 g
--- NOTE | 2021-05-31 09:11 | ECG_ITS ---
Measurements Intervals [place] Rate: 74 P: 205 VA: 148 QRS: 72 QRSD: 82 T: -36 QT: 394 QTc: 439 Interpretive Statements SINUS OR ECTOPIC ATRIAL RHYTHM DELAYED PRECORDIAL R/S TRANSITION ST-T WAVE ABNORMALITY IN ANTEROLAT/INF LEADS- CONSIDER ISCHEMIA ABNORMAL ECG Electronically Signed On 05-31-2021 15:20:42 QUAIL FARMER by Niels Garcia D.O.
[2021-05-31] MEDS: CEPHALEXIN 500 MG CAPSULE PO ×3 (09:29→21:32)
[2021-05-31] MEDS: ASPIRIN 81 MG ENTERIC TABLET PO (09:29)
[2021-05-31] MEDS: METOPROLOL TARTRATE 50 MG TAB 100 MG PO ×2 (09:30→21:32)
[2021-05-31] MEDS: INSULIN HUMAN NPH (*BKC) 100 UNITS/ML 20 UNITS SUB-Q ×2 (09:59→21:33)
[2021-05-31 11:33] LABS: Glucose Point of Care 211 mg/dl (65-105)
[2021-05-31] MEDS: INSULIN ASPART (*BKC) 100 UNITS/ML SUB-Q (11:33)
--- NOTE | 2021-05-31 13:01 | PM.CNOR ---
Assessment and Plan Additional Plan right gr toch min displaced No sxs of IT extension or involvement OK to mobilize as tolerated start toe toch wt bearing with walker and adv as tolerated F/U with Leb within 10 days of d/c History of Present Illness HPI Consult date: 05/31/21 Chief complaint: R femur fracture, greater troch Narrative: 76 yo fell onto right hip and sustained a gr troch fx with is isolated. No sxs of extention into the IT region. [facility] Past Medical History Medical History (Updated 05/31/21 @ 09:04 by Kathrine Giles MD) Atherosclerosis of both carotid arteries Benign tumor Care for low for the OR heart av [place]i get injection placed a phone whole graft chest Foot ALL RA can restart her she could start her 1 g 24 hours a I for primary told me to come in likes to told me it noon and chest x-ray hernia. Today the HR take the patient's C1 patient the day after leave at 1:30 a.m. get the pager back the police the calices like a show when she tells just some the entire work 1 of the year what lysis and also like I can admit acute I can admit I the FMLA 5 ft the new file for FMLA but after me appoint for 12 months for FMLA with CAD (coronary artery disease) Carpal tunnel syndrome, bilateral upper limbs COPD (chronic obstructive pulmonary disease) Hypertension Recurrent falls Type 2 diabetes mellitus with hyperglycemia Surgical History Surgical History (Updated 05/31/21 @ 09:00 by Kathrine Giles MD) History of appendectomy History of carpal tunnel release History of cholecystectomy History of loop recorder History of quadruple bypass History of total knee arthroplasty Left knee History of tubal ligation Hx of CABG 2002, 4 vessels Family History Family History Father Family history of cardiovascular disease Sibling Family history of cardiovascular disease Mother Family history of arthritis Family history of malignant neoplasm of breast in first degree relative Social History Social History (Updated 05/31/21 @ 09:00 by Kathrine Giles MD) Social History: She has 2 sons and is , living alone. The patient does not have a power divorce attorney. She is retired from a [employer] firm. The patient used to smoke and quit in 2016. The patient does not drink use marijuana or illicit drugs. Code status full code Smoking packs per day: 2 Smoking cigarettes per day: 40.0 Years smoked: 40 Smoking pack-years: 80.00 Smoking status: Former smoker Second hand tobacco smoke exposure: No Alcohol intake: never Substance use: never Substance use type: does not use Gender identity (if verbalized by the patient): Female Spiritual care concerns: No Agree to blood products: Yes Meds Home Medications and Allergies Home Medications Medication Instructions Recorded Confirmed Type lancets #200 each 07/30/19 05/30/21 Rx acetaminophen 650 mg 1,300 mg PO Q12H tablet 11/19/19 05/30/21 History tablet,extended release aspirin 81 mg tablet,delayed 81 mg PO DAILY 11/19/19 05/30/21 History release cholecalciferol (vitamin D3) 125 125 mcg PO DAILY 11/19/19 05/30/21 History mcg (5,000 unit) tablet dicyclomine 10 mg PO Q6H PRN 04/08/20 05/30/21 History insulin NPH isoph U-100 human 20 unit SUBCUT Q12H 04/08/20 05/30/21 History [Novolin N NPH U-100 Insulin] atorvastatin 10 mg tablet 10 mg PO .QHS #90 tablet 06/05/20 05/30/21 Rx blood sugar diagnostic #200 each 10/24/20 05/30/21 Rx losartan 100 mg tablet 100 mg PO DAILY #90 tablet 10/30/20 05/30/21 Rx albuterol sulfate 90 mcg/actuation 2 inh INHALATION Q4H PRN #8.5 g 02/11/21 05/30/21 Rx aerosol inhaler tiotropium 2.5 mcg-olodaterol 2.5 2 puff INHALATION DAILY #4 g 02/11/21 05/30/21 Rx mcg/actuation mist for inhalation bupropion HCl 75 mg tablet 75 mg PO BID #180 tablet 03/02/21 05/30/21 Rx citalopram 10 mg PO HS 05/30/21 05/30/21 History furosemide 20
[2021-05-31 16:38] LABS: Glucose Point of Care 156 mg/dl (65-105)
[2021-05-31] MEDS: CITALOPRAM HYDROBROMIDE 10 MG TABLET PO (21:32)
[2021-05-31] MEDS: ATORVASTATIN 10 MG TABLET PO (21:33)
[2021-05-31 21:42] LABS: Glucose Point of Care 152 mg/dl (65-105)
[2021-06-01] VITALS (13 sets, daily range): BP systolic 111–145; BP diastolic 43–88; PULSE 65–73; RESP 16–18; TEMP 36.4–37.7; O2SAT 93–96; BMI 26.9
[2021-06-01] MEDS: HYDROmorphone HCL INJ (*CRX) 1 MG/ML SYR 0.5 MG IV PUSH (05:46)
[2021-06-01] MEDS: CEPHALEXIN 500 MG CAPSULE PO ×3 (05:46→20:26)
[2021-06-01 07:35] LABS: Glucose Point of Care 89 mg/dl (65-105)
[2021-06-01] MEDS: buPROPion HCL 75 MG TABLET PO ×2 (08:44→20:27)
[2021-06-01] MEDS: ASPIRIN 81 MG ENTERIC TABLET PO (08:44)
[2021-06-01] MEDS: METOPROLOL TARTRATE 50 MG TAB 100 MG PO ×2 (08:45→20:26)
[2021-06-01] MEDS: CHOLECALCIFEROL 1,000 UNITS TABLET 5000 UNITS PO (08:45)
[2021-06-01] MEDS: LOSARTAN POTASSIUM 100 MG TABLET PO (08:45)
--- NOTE | 2021-06-01 08:45 | PM.IMPN ---
Progress Note: A&P Assessment and Plan (1) Closed fracture of greater trochanter of femur: Qualifiers: Encounter type: initial encounter Fracture alignment: displaced Laterality: right Qualified Code(s): S72.111A - Displaced fracture of greater trochanter of right femur, initial encounter for closed fracture Code(s): S72.113A - Displaced fracture of greater trochanter of unspecified femur, initial encounter for closed fracture Status: Acute Assessment and Plan: Hip xray shows: Fracture of greater trochanter of the proximal right femur Conservative management Pain control Orthopedic consult PT/OT Weight bearing status toe touch weight bearing (2) SAHARA (obstructive sleep apnea): Code(s): G47.33 - Obstructive sleep apnea (adult) (pediatric) Status: Acute Assessment and Plan: Continue home settings Titrating CPAP has been ordered (3) COPD (chronic obstructive pulmonary disease): Code(s): J44.9 - Chronic obstructive pulmonary disease, unspecified Status: Acute Assessment and Plan: Chest xray shows mild pulmonary edema and cardiomegaly Not in acute exacerbation Continue with home inhalers Supplemental oxygen Home O2 at 1.5L Currently at room air (4) Hyperlipidemia: Qualifiers: Hyperlipidemia type: unspecified Qualified Code(s): E78.5 - Hyperlipidemia, unspecified Code(s): E78.5 - Hyperlipidemia, unspecified Status: Acute Assessment and Plan: Continue with atorvastatin (5) 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 Losartan Trend BP Adjust therapy as indicated (8) Near syncope: Code(s): R55 - Syncope and collapse Status: Acute Assessment and Plan: Patient has loop monitor cardiology was consulted Orthostatic BP ordered Cardiology review loop recorder, which did not indicate arrhythmia Cardiology did not believe that she would need another echo at this time Carotid doppler showed <50% stenosis bilaterally. Education about changing positions Time Spent With Patient Time with patient: Greater than 35 minutes Subjective Date/time seen: 06/01/21 0845 Interval history: Date/Time: 05/30/21 23:55 This is a 76-year-old female patient who has a loop recorder. The patient stated that she has a history of passing out. 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 The patient came to the emergency room because of a fall. She was complaining of right hip pain and right knee pain. She has a right elbow abrasion as well. The patient stated that she lost her balance but did not pass out. She stated she did not hit her head. She stated that she fell backwards approximately 3 days ago. She was walking with a cane and that the pain was mild but worse with movement and walking. She was able to stand up with help of her relative and walk with a walker. She denied any other injuries than the ones mentioned above. She is alert and orientated x3. She is not on any blood thinners and denies hitting her head. Since the patient is alert orientated x3 and this occurred [address] of the brain was opted out at this time. Chest x-ray was read as mild pulmonary edema. Cardiomegaly. Knee x-ray was read as moderate right knee osteoarthritis. Hip and pelvis x-ray was read as fracture of greater tro
--- NOTE | 2021-06-01 08:45 | P.DS_ITS ---
DS: Admitting Diagnosis Discharge Date 06/02/21 0845 Admitting Diagnosis Hip fracture/Syncope DS: Discharge Diagnosis Discharge Diagnosis (1) Closed fracture of greater trochanter of femur: Qualifiers: Encounter type: initial encounter Fracture alignment: displaced Laterality: right Qualified Code(s): S72.111A - Displaced fracture of greater trochanter of right femur, initial encounter for closed fracture Code(s): S72.113A - Displaced fracture of greater trochanter of unspecified femur, initial encounter for closed fracture Status: Acute Assessment and Plan: * Hip xray shows: Fracture of greater trochanter of the proximal right femur * Conservative management * Pain control * Orthopedic consult thank you for your help * PT/OT * Weight bearing status toe touch weight bearing (2) SAHAAR (obstructive sleep apnea): Code(s): G47.33 - Obstructive sleep apnea (adult) (pediatric) Status: Acute Assessment and Plan: * Continue home settings * Titrating CPAP has been ordered (3) COPD (chronic obstructive pulmonary disease): Code(s): J44.9 - Chronic obstructive pulmonary disease, unspecified Status: Acute Assessment and Plan: * Chest xray shows mild pulmonary edema and cardiomegaly * Not in acute exacerbation * Continue with home inhalers * Supplemental oxygen * Home O2 at 1.5L * Currently on room air (4) Hyperlipidemia: Qualifiers: Hyperlipidemia type: unspecified Qualified Code(s): E78.5 - Hyperlipidemia, unspecified Code(s): E78.5 - Hyperlipidemia, unspecified Status: Acute Assessment and Plan: * Continue with atorvastatin (5) 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: Status: Acute Assessment and Plan: * Glucose 195 * Accu-Cheks AC and HS * Resume home NPH 20 units Q12hr * ISS * Hypoglycemic protocol (6) Depression with anxiety: Code(s): F41.8 - Other specified anxiety disorders Status: Acute Assessment and Plan: * Continue Celexa and Wellbutrin * Trend mood (7) Primary hypertension: Code(s): I10 - Essential (primary) hypertension Status: Acute Assessment and Plan: * Current BP is 148/58 * Continue with metoprolol 100mg Losartan 100mg * Trend BP * Adjust therapy as indicated (8) Near syncope: Code(s): R55 - Syncope and collapse Status: Acute Assessment and Plan: * Patient has loop monitor * cardiology was consulted * Orthostatic BP Standing 111/43, Laying 136/45, Sitting 145/50 * Cardiology review did not indicate arrhythmia * Talked to cardiology about echo and stated that she did not have any reason for echo * Carotid doppler <50% stenosis bilaterally DS: Summary Hospital Course Hospital Course: Patient is a 76-year-old female with a past medical history of carotid disease, CAD, COPD who presented to the ED for a fall. Hip x-ray indicated a fracture of the greater trochanter on the right. Head CT did not show any acute findings. Knee x-ray showed osteoarthritis. Orthopedics was consulted and showed that the patient could do conservative treatment with pain control and PT and OT. Current weight bearing status is toe-touch. Patient denies any chest pain, nausea, vomiting, diarrhea, constipation, fevers, She did state that she is having some shortness of benson
--- NOTE | 2021-06-01 08:45 | P.PNIM_ITS ---
Progress Note: A&P Assessment and Plan (1) Closed fracture of greater trochanter of femur: Qualifiers: Encounter type: initial encounter Fracture alignment: displaced Laterality: right Qualified Code(s): S72.111A - Displaced fracture of greater trochanter of right femur, initial encounter for closed fracture Code(s): S72.113A - Displaced fracture of greater trochanter of unspecified femur, initial encounter for closed fracture Status: Acute Assessment and Plan: * Hip xray shows: Fracture of greater trochanter of the proximal right femur * Conservative management * Pain control * Orthopedic consult * PT/OT * Weight bearing status toe touch weight bearing (2) SAHARA (obstructive sleep apnea): Code(s): G47.33 - Obstructive sleep apnea (adult) (pediatric) Status: Acute Assessment and Plan: * Continue home settings * Titrating CPAP has been ordered (3) COPD (chronic obstructive pulmonary disease): Code(s): J44.9 - Chronic obstructive pulmonary disease, unspecified Status: Acute Assessment and Plan: * Chest xray shows mild pulmonary edema and cardiomegaly * Not in acute exacerbation * Continue with home inhalers * Supplemental oxygen * Home O2 at 1.5L * Currently at room air (4) Hyperlipidemia: Qualifiers: Hyperlipidemia type: unspecified Qualified Code(s): E78.5 - Hyperlipidemia, unspecified Code(s): E78.5 - Hyperlipidemia, unspecified Status: Acute Assessment and Plan: * Continue with atorvastatin (5) 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 Losartan * Trend BP * Adjust therapy as indicated (8) Near syncope: Code(s): R55 - Syncope and collapse Status: Acute Assessment and Plan: * Patient has loop monitor * cardiology was consulted * Orthostatic BP ordered * Cardiology review loop recorder, which did not indicate arrhythmia * Cardiology did not believe that she would need another echo at this time * Carotid doppler showed <50% stenosis bilaterally. * Education about changing positions Time Spent With Patient Time with patient: Greater than 35 minutes Subjective Date/time seen: 06/01/21 0845 Interval history: Date/Time: 05/30/21 23:55 This is a 76-year-old female patient who has a loop recorder. The patient stated that she has a history of passing out. 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 The patient came to the emergency room because of a fall. She was complaining of right hip pain and right knee pain. She has a right elbow abrasion as well. The patient stated that she lost her balance but did not pass out. She stated she did not hit her head. She stated that she fell backwards approximately 3 days ago. She was walking with a cane and that the pain was mild but worse with movement and w
--- NOTE | 2021-06-01 08:45 | PM.DS ---
DS: Admitting Diagnosis Discharge Date 06/02/21 0845 Admitting Diagnosis Hip fracture/Syncope DS: Discharge Diagnosis Discharge Diagnosis (1) Closed fracture of greater trochanter of femur: Qualifiers: Encounter type: initial encounter Fracture alignment: displaced Laterality: right Qualified Code(s): S72.111A - Displaced fracture of greater trochanter of right femur, initial encounter for closed fracture Code(s): S72.113A - Displaced fracture of greater trochanter of unspecified femur, initial encounter for closed fracture Status: Acute Assessment and Plan: Hip xray shows: Fracture of greater trochanter of the proximal right femur Conservative management Pain control Orthopedic consult thank you for your help PT/OT Weight bearing status toe touch weight bearing (2) SAHARA (obstructive sleep apnea): Code(s): G47.33 - Obstructive sleep apnea (adult) (pediatric) Status: Acute Assessment and Plan: Continue home settings Titrating CPAP has been ordered (3) COPD (chronic obstructive pulmonary disease): Code(s): J44.9 - Chronic obstructive pulmonary disease, unspecified Status: Acute Assessment and Plan: Chest xray shows mild pulmonary edema and cardiomegaly Not in acute exacerbation Continue with home inhalers Supplemental oxygen Home O2 at 1.5L Currently on room air (4) Hyperlipidemia: Qualifiers: Hyperlipidemia type: unspecified Qualified Code(s): E78.5 - Hyperlipidemia, unspecified Code(s): E78.5 - Hyperlipidemia, unspecified Status: Acute Assessment and Plan: Continue with atorvastatin (5) 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: Status: Acute Assessment and Plan: Glucose 195 Accu-Cheks AC and HS Resume home NPH 20 units Q12hr ISS Hypoglycemic protocol (6) Depression with anxiety: Code(s): F41.8 - Other specified anxiety disorders Status: Acute Assessment and Plan: Continue Celexa and Wellbutrin Trend mood (7) Primary hypertension: Code(s): I10 - Essential (primary) hypertension Status: Acute Assessment and Plan: Current BP is 148/58 Continue with metoprolol 100mg Losartan 100mg Trend BP Adjust therapy as indicated (8) Near syncope: Code(s): R55 - Syncope and collapse Status: Acute Assessment and Plan: Patient has loop monitor cardiology was consulted Orthostatic BP Standing 111/43, Laying 136/45, Sitting 145/50 Cardiology review did not indicate arrhythmia Talked to cardiology about echo and stated that she did not have any reason for echo Carotid doppler <50% stenosis bilaterally DS: Summary Hospital Course Hospital Course: Patient is a 76-year-old female with a past medical history of carotid disease, CAD, COPD who presented to the ED for a fall. Hip x-ray indicated a fracture of the greater trochanter on the right. Head CT did not show any acute findings. Knee x-ray showed osteoarthritis. Orthopedics was consulted and showed that the patient could do conservative treatment with pain control and PT and OT. Current weight bearing status is toe-touch. Patient denies any chest pain, nausea, vomiting, diarrhea, constipation, fevers, She did state that she is having some shortness of breath, however, nothing that is not normal for her. She did have some near syncopal episodes. She also gets dizzy with position changes, however, it was noted that the patient has been taking her medications wrong, including taking her metoprolol three times a day, instead of two times a day. Cardiology did see the patient and stated that the patient's is recorded not indicate any arrhythmia or any reason for a syncopal episode. Patient also states that she is weak and fatigued. She does have nausea sometimes. Labs have been stable i
[2021-06-01] MEDS: UMECLIDINIUM/VILANTEROL 62.5-25 MCG ELLIPTA 1 PUFF INHALATION (10:40)
--- NOTE | 2021-06-01 10:40 | PC.NURSE ---
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
[2021-06-01 11:25] LABS: Glucose Point of Care 174 mg/dl (65-105)
--- NOTE | 2021-06-01 11:44 | PM.PNCARD ---
Progress Note: A&P Assessment and Plan (1) CAD (coronary artery disease): Code(s): I25.10 - Atherosclerotic heart disease of [place] coronary artery without angina pectoris Status: Acute Assessment and Plan: Remote CABG, no angina at present. Atypical, Isolated 1-2 minutes atypical right-sided chest pain early this morning without recurrence. Counseled to notify us immediately with recurrent symptoms. Continue current medical therapy. Stable. Continue aspirin, statin and current medical therapy including metoprolol. Continue clinical observation for now as discussed. Patient verbalized understanding and agrees. (2) Recurrent falls: Code(s): R29.6 - Repeated falls Status: Acute Assessment and Plan: Counseled patient at length regarding the dangers of recurrent falls. Stressed the importance of using her walker home. PT OT per primary service. She does admit to dizziness and balance problems. Status post loop recorder, no significant bradycardia or pauses. It is likely that her falls are related to poor balance, check orthostatics. She once had hypoglycemia so that may be a contributing factor. She also apparently was taking her metoprolol t.i.d. instead of b.i.d. so that may have contributed. Compliance with medications counseling performed. She has carotid disease which may make her more sensitive to drops in blood pressure as well. (3) Primary hypertension: Code(s): I10 - Essential (primary) hypertension Status: Acute Assessment and Plan: BP improved, better high than low given history of falls. Check orthostatics sitting and standing. (4) Atherosclerosis of both carotid arteries: Code(s): I65.23 - Occlusion and stenosis of bilateral carotid arteries Status: Acute Assessment and Plan: Bilateral carotid disease. Continue aspirin, statin therapy. [id number] disease. (5) Preoperative cardiovascular examination: Code(s): Z01.810 - Encounter for preprocedural cardiovascular examination Status: Acute Assessment and Plan: Conservative management recommended by Orthopedic surgery. 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 Subjective Date/time seen: Date of service: 06/01/21 11:44 Follow-up for status post fall, CAD, status post loop recorder Feeling fine. Denies chest pain or shortness of breath currently. States she had a couple minutes of right-sided chest achiness at rest without associated symptoms early this morning lying in bed. Patient reiterates she did not pass out and was not dizzy when she fell only losing her balance misstepped pain without for walker which she has but does not use at home. No new issues overnight. Review of Systems Constitutional: Constitutional: Reports weakness Eyes: Eyes: Reports blurry vision ENT: Denies epistaxis Cardiovascular: Cardiovascular: Denies chest pain, Denies pedal edema, Denies leg edema, Reports lightheadedness, Denies palpitations and Reports dyspnea on exertion Respiratory: Respiratory: Reports dyspnea on exertion Gastrointestinal: Gastrointestinal: Denies abdominal pain, Denies hematochezia and Denies hematemesis Genitourinary: Genitourinary: Denies hematuria and Denies dysuria Musculoskeletal: Musculoskeletal: Reports arthralgias Integumentary/Breasts: Skin/Breast: Denies rash Neurologic: Denies behavioral changes, Denies confusion and Reports weakness Psychiatric: Psychiatric: Denies behavioral changes and Denies confusion Endocrine: Endocrine: Denies palpitations Exam Const: General: comfortable and no acute distress; No confusion Orientation/consciousness: No confusion HENMT: General nose exam: no epistaxis Mouth: Yes dry mucous membranes Eyes: EOM: EOMs intact bilaterally Neck: Neck: supple and no JVD T
[2021-06-01 11:47] LABS: Basophils Absolute Auto 0.1 K/mm3 (0.0-0.1); Basophils Percent Auto 0.8 % (0.2-1.2); Eosinophils Absolute Auto 0.1 K/mm3 (0-0.3); Hematocrit 34.2 % (37.0-47.0); Hemoglobin 10.8 g/dL (12.0-15.0); Immature Granulocyte Absolute 0.03 K/mm3 (0.00-0.031); Immature Granulocyte Percent A 0.5 % (0-0.5); Mean Corpuscular HGB Conc 31.6 g/dl (32-36); Mean Corpuscular Hemoglobin 28.8 pg (26-34); Mean Corpuscular Volume 91.2 fl (80-100); Mean Platelet Volume 12.4 fl (7.4-10.4); Monocytes Absolute Auto 0.7 K/mm3 (0.1-0.6); Monocytes Percent Auto 10.8 % (2.6-8.5); Neutrophils Absolute Auto 5.1 K/mm3 (1.3-6.7); Neutrophils Percent Auto 76.9 % (45.5-73.1); Platelet Count Result 125 k/mm3 (150-375); Red Blood Count 3.75 M/mm3 (4.2-5.4); Red Cell Distribution Width 14.3 % (11.5-14.5); White Blood Count 6.6 K/mm3 (4.5-10.0)
[2021-06-01 11:50] LABS: Alanine Aminotransferase 10 U/L (4-35); Albumin Level 3.6 g/dL (3.5-5.1); Alkaline Phosphatase 38 U/L (38-126); Anion Gap 4 mmol/L (8-16); Aspartate Amino Transferase 24 U/L (14-36); Bilirubin,Total 0.8 mg/dL (0.2-1.3); Blood Urea Nitrogen 17 mg/dL (7-17); Calcium 8.8 mg/dL (8.4-10.2); Carbon Dioxide 30 mmol/L (22-30); Chloride 102 mmol/L (98-107); Estimated CRCL calculation 45 ml/min; Estimated Glomerular Filt Rate > 60; Glucose 168 mg/dL (65-110); Potassium 3.7 mmol/L (3.4-5.0); Sodium 136 mmol/L (137-145)
--- NOTE | 2021-06-01 12:50 | PC.NURSE ---
To Radiology per stretcher
[2021-06-01] MEDS: FUROSEMIDE INJ 40 MG/4 ML VIAL IV PUSH (13:53)
[2021-06-01 16:47] LABS: Glucose Point of Care 190 mg/dl (65-105)
--- NOTE | 2021-06-01 17:32 | PM.PNORT ---
Progress Note: A&P Additional Plan Right Greater troch fx without IT involvement cont to mobilize as tolerated. Subjective Subjective Date/Time Seen: 06/01/21 17:32 Interval history: Right hip gr troch fx. pain is diminished and pt was out of bed today. 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 Objective Data Vital Signs Vital Signs: Vital Signs - 24 hr 05/31/21 20:47 05/31/21 21:02 05/31/21 21:32 Temperature 36.9 C Pulse Rate 73 73 Respiratory Rate 14 Blood Pressure 151/60 H Pulse Oximetry 93 96 05/31/21 23:08 06/01/21 02:55 06/01/21 05:11 Temperature 36.6 C Pulse Rate 72 68 66 Respiratory Rate 18 Blood Pressure 138/70 Pulse Oximetry 93 93 96 06/01/21 08:45 06/01/21 10:15 06/01/21 10:18 Temperature Pulse Rate 69 68 68 Respiratory Rate Blood Pressure 129/51 L 130/88 Pulse Oximetry 06/01/21 10:21 06/01/21 14:00 Temperature 36.4 C Pulse Rate 70 69 Respiratory Rate 18 Blood Pressure 111/43 L 136/45 L Pulse Oximetry 93 Intake/Output Intake/Output: Intake & Output 05/29/21 05/30/21 05/31/21 06/01/21 23:59 23:59 23:59 23:59 Intake Total 1742 460 Output Total 301 Balance 1441 460 Meds/Results Medications: Active Medications Generic Name Dose Route Start Last Admin Trade Name Freq PRN Reason Stop Dose Admin Albuterol 2 puff 05/31/21 00:16 Albuterol Sulfate (*Sp) Aerosol 1 Puff INHALATION Q4H PRN shortness of breath or wheezing Aspirin 81 mg 05/31/21 09:00 06/01/21 08:44 Aspirin 81 Mg Enteric Tablet PO 81 mg DAILY ROSY Administration Atorvastatin Calcium 10 mg 05/31/21 00:20 05/31/21 21:33 Atorvastatin 10 Mg Tablet PO 10 mg HS ROSY Administration Bupropion HCl 75 mg 05/31/21 00:40 06/01/21 08:44 Bupropion Hcl 75 Mg Tablet PO 75 mg Q12HR ROSY Administration Cephalexin HCl 500 mg 05/31/21 09:00 06/01/21 13:54 Cephalexin 500 Mg Capsule PO 500 mg Q8HR ROSY Administration Citalopram Hydrobromide 10 mg 05/31/21 00:40 05/31/21 21:32 Citalopram Hydrobromide 10 Mg Tablet PO 10 mg HS ROSY Administration Dextrose 12.5 gm 05/31/21 00:18 Dextrose 50% 25 Gm/50 Ml Syringe IV PUSH PRN PRN Hypoglycemia Protocol Dicyclomine HCl 10 mg 05/31/21 00:16 Dicyclomine Hcl 10 Mg Capsule PO Q6H PRN Spasms Furosemide 20 mg 05/31/21 00:16 Furosemide 20 Mg Tablet PO DAILY PRN swelling Glucagon 1 mg 05/31/21 00:18 Glucagon For Inj 1 Mg Vial IM PRN PRN Hypoglycemia Protocol Glucose 15 gm 05/31/21 00:18 Glucose Oral Gel 15 Gm Of Glucse In 37.5 Gm Tube PO PRN PRN Hypoglycemia Protocol Hydromorphone HCl 0.5 mg 05/30/21 17:10 06/01/21 05:46 Hydromorphone Hcl Inj (*Crx) 1 Mg/Ml Syr IV PUSH 0.5 mg Q4H PRN Administration Pain Rated 7-10 Dextrose 1,000 mls @ 100 mls/hr 05/31/21 00:18 Dextrose 5% 1,000 Ml IVPB PRN PRN Hypoglycemia Protocol Insulin Aspart 2 - 5 units 05/31/21 08:00 06/01/21 16:45 Insulin Aspart (*Bkc) 100 Units/Ml SUB-Q Not Given TIDWM [facility] Protocol Insulin Human NPH 20 units 05/31/21 09:00 06/01/21 09:19 Insulin Human Nph (*Bkc) 100 Units/Ml SUB-Q Not Given Q12HR [facility] Losartan Potassium 100 mg 05/31/21 09:00 06/01/21 08:45 Losartan Potassium 100 Mg Tablet PO 100 mg DAILY ROSY Administration Metoprolol Tartrate 100 mg 05/31/21 09:00 06/01/21 08:45 Metoprolol Tartrate 50 Mg Tab PO 100 mg Q12H ROSY Administration Ondansetron HCl 4 mg 05/30/21 17:10 Ondansetron Inj 4 Mg/2 Ml Vial IV PUSH Q4H PRN Nausea Umeclidinium/Vilanterol 1 puff 05/31/21 09:00 06/01/21 10:40 Umeclidinium/Vilanterol 62.5-25 Mcg Ellipta INHALATION 1 puff DAILY ROSY Administration Negra
[2021-06-01 20:19] LABS: Glucose Point of Care 232 mg/dl (65-105)
[2021-06-01] MEDS: CITALOPRAM HYDROBROMIDE 10 MG TABLET PO (20:27)
[2021-06-01] MEDS: ATORVASTATIN 10 MG TABLET PO (20:27)
[2021-06-02 01:50] VITALS: PULSE 72; O2SAT 93
[2021-06-02 04:22] VITALS: BP 148/58; PULSE 71; RESP 16; TEMP 37.2; O2SAT 93
[2021-06-02 05:57] LABS: Basophils Percent Auto 0.5 % (0.2-1.2); Eosinophils Absolute Auto 0.2 K/mm3 (0-0.3); Eosinophils Percent Auto 2.9 % (0-4.4); Hematocrit 32.7 % (37.0-47.0); Hemoglobin 10.7 g/dL (12.0-15.0); Immature Granulocyte Absolute 0.02 K/mm3 (0.00-0.031); Immature Granulocyte Percent A 0.3 % (0-0.5); Immature Platelet Fraction Pct 11.1 % (0.9-11.2); Lymphocytes Absolute Auto 1.03 K/mm3 (0.9-3.2); Lymphocytes Percent Auto 17.5 % (18.3-44.2); Mean Corpuscular HGB Conc 32.7 g/dl (32-36); Mean Corpuscular Hemoglobin 29.1 pg (26-34); Mean Corpuscular Volume 88.9 fl (80-100); Mean Platelet Volume 13.4 fl (7.4-10.4); Monocytes Absolute Auto 0.8 K/mm3 (0.1-0.6); Monocytes Percent Auto 12.9 % (2.6-8.5); Neutrophils Absolute Auto 3.9 K/mm3 (1.3-6.7); Neutrophils Percent Auto 65.9 % (45.5-73.1); Platelet Count Result 95 k/mm3 (150-375); Red Blood Count 3.68 M/mm3 (4.2-5.4); Red Cell Distribution Width 14.1 % (11.5-14.5); White Blood Count 5.9 K/mm3 (4.5-10.0)
[2021-06-02 06:04] LABS: Alanine Aminotransferase 10 U/L (4-35); Albumin Level 3.6 g/dL (3.5-5.1); Alkaline Phosphatase 38 U/L (38-126); Anion Gap 7 mmol/L (8-16); Aspartate Amino Transferase 27 U/L (14-36); Bilirubin,Total 0.9 mg/dL (0.2-1.3); Blood Urea Nitrogen 18 mg/dL (7-17); Calcium 8.5 mg/dL (8.4-10.2); Carbon Dioxide 27 mmol/L (22-30); Chloride 100 mmol/L (98-107); Estimated CRCL calculation 45 ml/min; Estimated Glomerular Filt Rate > 60; Glucose 195 mg/dL (65-110); Magnesium 1.6 mg/dL (1.6-2.3); Potassium 3.5 mmol/L (3.4-5.0); Sodium 134 mmol/L (137-145)
[2021-06-02] MEDS: CEPHALEXIN 500 MG CAPSULE PO ×2 (06:11→13:54)
[2021-06-02 07:52] LABS: Glucose Point of Care 193 mg/dl (65-105)
[2021-06-02 08:36] VITALS: O2SAT 94
[2021-06-02 08:52] VITALS: PULSE 67
[2021-06-02] MEDS: ASPIRIN 81 MG ENTERIC TABLET PO (08:52)
[2021-06-02] MEDS: buPROPion HCL 75 MG TABLET PO (08:52)
[2021-06-02] MEDS: CHOLECALCIFEROL 1,000 UNITS TABLET 5000 UNITS PO (08:52)
[2021-06-02] MEDS: LOSARTAN POTASSIUM 100 MG TABLET PO (08:52)
[2021-06-02] MEDS: METOPROLOL TARTRATE 50 MG TAB 100 MG PO (08:52)
[2021-06-02 10:46] LABS: EDCOVIDSCREEN Negative (Negative)
[2021-06-02] MEDS: MAGNESIUM SULF 4 GM/WATER100ML 4 GM/100 ML BAG IVPB (10:52)
[2021-06-02 11:40] LABS: Glucose Point of Care 235 mg/dl (65-105)
[2021-06-02] MEDS: INSULIN ASPART (*BKC) 100 UNITS/ML SUB-Q (11:49)
[2021-06-02 14:00] VITALS: BP 147/47; PULSE 66; RESP 16; TEMP 36.8; O2SAT 95
--- NOTE | 2021-06-02 14:18 | PCPTNOTE ---
Patient declined PT treatment this afternoon due to anticipated discharge.
--- NOTE | 2021-06-03 11:54 | WPDAMENDMENT ---
Record Amendment Report Amendment The medical history under benign tumor details were dictated in error and has been removed from the record.
== END 2021-06-02 14:44 ==
LOC: ANHED 17:17 → ANH2MED 06-01 11:09
PROVIDERS: Nurse Practitioner; Admitting Provider Hospitalist; Emergency Provider Emergency Medicine; PCP Internal Medicine; Visit Provider Nurse Practitioner
DX: S72.111A Displaced fracture of greater trochanter of right femur, initial encounter for closed fracture (principal); W19.XXXA Unspecified fall, initial encounter; R29.6 Repeated falls; I25.10 Atherosclerotic heart disease of native coronary artery without angina pectoris; I65.23 Occlusion and stenosis of bilateral carotid arteries; J44.9 Chronic obstructive pulmonary disease, unspecified; R06.09 Other forms of dyspnea; R55 Syncope and collapse; I10 Essential (primary) hypertension; E11.9 Type 2 diabetes mellitus without complications; G47.33 Obstructive sleep apnea (adult) (pediatric); I27.20 Pulmonary hypertension, unspecified; E78.5 Hyperlipidemia, unspecified; F41.8 Other specified anxiety disorders; Q21.1 Atrial septal defect; Z95.1 Presence of aortocoronary bypass graft; Z79.82 Long term (current) use of aspirin; Z79.4 Long term (current) use of insulin; Z87.891 Personal history of nicotine dependence; Z79.51 Long term (current) use of inhaled steroids; Z99.81 Dependence on supplemental oxygen; Z20.822 Contact with and (suspected) exposure to COVID-19
CPT/HCPCS: 36415; 71045; 73502; 73562; 80048; 80053; 81001; 82728; 82948; 83615; 83690; 83735; 84443; 85025; 85055; 86140; 87426; 93005; 93880; 94640; 96361; 96365; 96372; 96375; 96376; 97110; 97116; 97161; 97165; 97530; 99285; A9270; C9803; G0378; J1170; J1815; J1885; J1940; J3475; J7120

== ENCOUNTER 2022-07-28 14:11 | Outpatient (CLI) | payer MEDICARE, SELFPAY ==
--- NOTE | ~2022-07-28 | US_ITS ---
EXAMINATION: US arterial ankle brachial ind DATE: 07/28/2022 15:06 INDICATION: Peripheral arterial disease. Pain in the feet. TECHNIQUE: Segmental pressures and plethysmographic and Doppler waveforms of the brachial and lower e xtremity arteries were obtained. COMPARISON: None. FINDINGS: Right and left brachial artery pressures of 154 mm Hg and 172 mm Hg, respectively, are concordant (no rmal difference <= 30 mmHg). The right ankle-brachial index (LEONIDAS) could not be measured due to inability to cuff occlude the arter ies (normal >= 0.9-1.0). The right great toe-brachial index (TBI) is 0.27 (normal >= 0.65). Arterial Doppler waveforms are biphasic at the ankle. The left LEONIDAS could not be measured due to inability to cuff occlude the arteries. The left TBI is 0.5 1. Arterial Doppler waveforms are biphasic at the ankle. IMPRESSION: 1. Decreased TBIs and nondiagnostic ABIs, consistent with arterial occlusive disease. Reviewed, dictated and finalized at location A. IMPRESSION: 1. Decreased TBIs and nondiagnostic ABIs, consistent with arterial occlusive di sease.
== END 2022-07-28 14:12 | disposition home or self-care (01) ==
PROVIDERS: PCP Internal Medicine; Visit Provider Nurse Practitioner Adult Health
DX: M79.672 Pain in left foot (principal); M79.671 Pain in right foot; I73.9 Peripheral vascular disease, unspecified
CPT/HCPCS: 93922

== ENCOUNTER 2022-11-11 17:05 | Emergency (ER) | payer MEDICARE, SELFPAY ==
--- NOTE | ~2022-11-11 | CT_ITS ---
EXAMINATION: CT lumbar spine wo con DATE: 11/11/2022 18:48 INDICATION: Low back pain after twisting injury. TECHNIQUE: Computed tomography (CT) of the lumbar spine was performed without intravenous contrast. T he dose-length product was 400.24 mGy-cm. Automated exposure control and iterative reconstruction joe hnique were employed. COMPARISON: None FINDINGS: There is superior endplate compression fractures of L3 and L4, likely subacute or chronic. There is mild disc narrowing at L2-3 and to a greater degree L5-S1. There is grade 1 spondylolisthesi s at L4-5. There is atherosclerosis of the aorta. Sacral foramen are intact. There are symmetric dege nerative changes of the sacroiliac joints. IMPRESSION: 1. Superior endplate compression fractures of L3 and L4, likely subacute or chronic. Consider correla tion with MRI. 2: Moderate lumbar spondylosis. Reviewed, dictated and finalized at location A. IMPRESSION: 1. Superior endplate compression fractures of L3 and L4, likely subacute or chr onic. Consider correlation with MRI. 2: Moderate lumbar spondylosis.
--- NOTE | ~2022-11-11 | XR_ITS ---
XR hip LT 2V w AP pelvis 11/11/2022 18:53 Indication: Left hip and low back pain Procedure: 3 views left hip Comparison: 05/30/2021 Findings: Mild osteoarthritis of the hips. There is superior endplate compression fractures of L3 and L4, age indeterminate. There is an old fracture of the right greater trochanter with nonunion. Pelvi c rings are intact. Impression: 1: Age-indeterminate fractures superior endplates of L3 and L4. 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 Reviewed, dictated and finalized at location A. Impression: 1: Age-indeterminate fractures superior endplates of L3 and L4. 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
[2022-11-11 17:33] VITALS: BP 157/57; PULSE 84; RESP 18; TEMP 36.8; O2SAT 99
--- NOTE | 2022-11-11 18:36 | ED.BACK ---
HPI - Back Pain/Injury General Chief Complaint: Back Pain/Injury Stated Complaint: lower back pain Time Seen by Provider: 11/11/22 17:43 History of Present Illness HPI Narrative: Patient is a 77-year-old female presenting with lower back pain. Patient states that she was playing with her cat yesterday when she twisted and heard a popping sound in her lower back. States that she has had left-sided lower back pain that goes into her left hip since this time. States she has been taking her extra strength Tylenol with minimal relief. States that some of her toes on her right foot feel tingly but denies numbness or weakness. No groin anesthesia or bladder or bowel incontinence. Denies further complaints. Related Data Home Medications Medication Instructions Recorded Confirmed acetaminophen 650 mg 1,300 mg PO Q12H 11/19/19 05/30/21 tablet,extended release (Tylenol Arthritis Pain) aspirin 81 mg tablet,delayed 81 mg PO DAILY 11/19/19 05/30/21 release (Adult Low Dose Aspirin) cholecalciferol (vitamin D3) 125 125 mcg PO DAILY 11/19/19 05/30/21 mcg (5,000 unit) tablet dicyclomine 10 mg capsule 10 mg PO Q6H PRN Spasms 04/08/20 05/30/21 insulin NPH isoph U-100 human 100 20 unit subcut Q12H 04/08/20 05/30/21 unit/mL subcutaneous suspension (Novolin N NPH U-100 Insulin isophane) citalopram 10 mg tablet 10 mg PO HS 05/30/21 05/30/21 furosemide 20 mg tablet 20 mg PO DAILY PRN swelling 05/30/21 05/30/21 metoprolol tartrate 100 mg tablet 100 mg PO Q12H 05/30/21 05/31/21 Allergies Allergy/AdvReac Type Severity Reaction Status Date / Time bacitracin Allergy Intermediate FACE Verified 05/30/21 18:51 PUFFINESS neomycin Allergy Intermediate FACIAL Verified 05/30/21 18:51 PUFFINESS nickel Allergy Intermediate Rash Verified 05/30/21 18:51 nystatin Allergy Intermediate FACIAL Verified 05/30/21 18:51 PUFFINESS polymyxin B Allergy Intermediate FACIAL Verified 05/30/21 18:51 PUFFINESS triamcinolone Allergy Intermediate Rash Verified 05/30/21 18:51 Aminoglycosides Allergy Mild ANTIBIOTIC Verified 05/30/21 18:51 EAR DROP CAUSED RASH gramicidin D Allergy Mild FACE PUFFED Verified 05/30/21 18:51 latex Allergy Mild Rash W/ Verified 05/30/21 18:51 PROLONGED USE Review of Systems Review of Systems: All systems reviewed & are unremarkable except as noted in HPI and below PMFSH Past Medical History Medical History Atherosclerosis of both carotid arteries Benign tumor CAD (coronary artery disease) Carpal tunnel syndrome, bilateral upper limbs COPD (chronic obstructive pulmonary disease) Hypertension Recurrent falls Type 2 diabetes mellitus with hyperglycemia Surgical History Surgical History History of appendectomy History of carpal tunnel release History of cholecystectomy History of loop recorder History of quadruple bypass History of total knee arthroplasty Left knee History of tubal ligation Hx of CABG 2002, 4 vessels Family History Family History Father Family history of cardiovascular disease Sibling Family history of cardiovascular disease Mother Family history of arthritis Family history of malignant neoplasm of breast in first degree relative Social History Social History Social History: She has 2 sons and is , living alone. The patient does not have a power senior trial attorney. She is retired from a [employer] firm. The patient used to smoke and quit in 2016. The patient does not drink use marijuana or illicit drugs. Code status full code Smoking packs per day: 2 Smoking cigarettes per day: 40.0 Years smoked: 40 Smoking pack-years: 80.00 Smoking status: Former smoker Second hand tobacco smoke exposure: No Alcohol intake: tracy
[2022-11-11] MEDS: HYDROcodone/acetaminophen (*CRX) 5-325 MG TABLET 1 TAB PO (18:38)
[2022-11-11] MEDS: LIDOCAINE 5% PATCH 1 PATCH TRANSDERM (18:38)
[2022-11-11 20:58] VITALS: BP 154/89; PULSE 78; O2SAT 99
== END 2022-11-11 21:00 | disposition home or self-care (01) ==
PROVIDERS: Emergency Provider Emergency Medicine; PCP Internal Medicine
DX: S32.030A Wedge compression fracture of third lumbar vertebra, initial encounter for closed fracture (principal); S32.040A Wedge compression fracture of fourth lumbar vertebra, initial encounter for closed fracture; I65.23 Occlusion and stenosis of bilateral carotid arteries; I25.10 Atherosclerotic heart disease of native coronary artery without angina pectoris; J44.9 Chronic obstructive pulmonary disease, unspecified; I10 Essential (primary) hypertension; E11.9 Type 2 diabetes mellitus without complications; Z96.652 Presence of left artificial knee joint; Z95.1 Presence of aortocoronary bypass graft; Z87.891 Personal history of nicotine dependence; Z90.49 Acquired absence of other specified parts of digestive tract; Z79.82 Long term (current) use of aspirin; Z79.4 Long term (current) use of insulin; M47.816 Spondylosis without myelopathy or radiculopathy, lumbar region; S72.111K Displaced fracture of greater trochanter of right femur, subsequent encounter for closed fracture with nonunion; X58.XXXD Exposure to other specified factors, subsequent encounter; X50.9XXA Other and unspecified overexertion or strenuous movements or postures, initial encounter
CPT/HCPCS: 72131; 73502; 99284; A9270

== ENCOUNTER 2023-04-01 14:33 | Outpatient (CLI) | payer MEDICARE, SELFPAY ==
[2023-04-01 15:00] VITALS: PULSE 96; O2SAT 87
[2023-04-01 15:01] VITALS: O2SAT 94
[2023-04-01 15:04] VITALS: PULSE 119; O2SAT 91
[2023-04-01 15:15] VITALS: PULSE 90; O2SAT 94
--- NOTE | 2023-04-01 16:02 | HOMEO2EVAL ---
Evaluation was performed at [facility] Home Oxygen Evaluation RC: Home Oxygen (O2) Evaluation Start: 04/01/23 15:59 Freq: Status: Active Protocol: RPE Activity Type Activity Date Activity User E-sign Co-sign Detail Recorded Client Recorded Date Recorded By Document 04/01/23 15:00 J CARLOS [id number] 04/01/23 16:02 J CARLOS Document 04/01/23 15:01 J CARLOS [id number] 04/01/23 16:02 J CARLOS Document 04/01/23 15:04 J CARLOS [id number] 04/01/23 16:02 J CARLOS Document 04/01/23 15:15 J CARLOS [id number] 04/01/23 16:02 J CARLOS 04/01/23 04/01/23 04/01/23 15:00 15:01 15:04 Home O2 Evaluation [Oxygen] -Test Phase Resting Resting Exercise -Oxygen Delivery Room Air Nasal Cannula Nasal Cannula -Oxygen Flow Rate (L/min) 2 2 [Pulse Oximetry] -Pulse Oximetry (90-100 %) 87 L 94 91 [Pulse Rate] -Pulse Rate (60-100 beats/min) 96 119 H [Exercise] -Ambulation Distance (feet) 300 -Ambulation Distance (meters) 91.43 [Comments] -Home Oxygen Evaluation Comments PT REQUIRES 2 L HOME O2 AT REST AND WITH ACTIVITY [Charges] -Evaluation Charges O2 Evaluation by Pulmonary 04/01/23 15:15 Home O2 Evaluation [Oxygen] -Test Phase Resting -Oxygen Delivery Nasal Cannula -Oxygen Flow Rate (L/min) 2 [Pulse Oximetry] -Pulse Oximetry (90-100 %) 94 [Pulse Rate] -Pulse Rate (60-100 beats/min) 90 [Exercise] -Ambulation Distance (feet) -Ambulation Distance (meters) [Comments] -Home Oxygen Evaluation Comments [Charges] -Evaluation Charges
--- NOTE | 2023-04-04 14:10 | WPDPFTINT ---
PFT Procedure Performed PFT Procedure Performed Spirometry with Pre/Post Bronchodilator Plethysmography (Lung Vol) Diffusing Cap (DLCO) Flow Vol Loop PFT Interpretation This is a pulmonary function test with pre and post-bronchodilator spirometry, plethysmography and diffusing capacity. The test was performed and results interpreted in accordance with the 2019 and 2005 ATS/ERS Task Force guidelines respectively using the Global Lung Function Initiative-2012 reference equations. Patient demonstrated good effort and cooperation. Reproducibility criteria were met. The quality of the pre bronchodilator spirometry maneuver was Grade A and post bronchodilator spirometry maneuver was Grade A. Findings: Spirometry: There is decreased maximal expiratory airflow at low lung volumes with concave expiratory flow tracing. The contour the inspiratory flow tracing is normal. The pre bronchodilator FVC is 1.60 L, 68% predicted. The pre bronchodilator FEV1 is 1.10 L, 61% predicted. The pre bronchodilator FEV1: FVC ratio 69%. The post bronchodilator FVC is 1.63 L, representing 1% increase. The post bronchodilator FEV1 is 1.15 L, representing a 4% increase. The post bronchodilator FEV1: FVC ratio 71%. Plethysmography: The total lung capacity is 3.11 L, 68% predicted. The functional residual capacity is 1.81 L, 69% predicted. The residual volume is 1.29 L, 59% predicted. Diffusing capacity: The diffusing capacity unadjusted for hemoglobin and carboxyhemoglobin is 7.4, 40% predicted. The diffusing capacity adjusted for alveolar volume is 3.11, 72% predicted. In comparison to previous pulmonary function testing on 03/10/2021 the post bronchodilator FVC is unchanged from 1.53 L to 1.63 L. The post bronchodilator FEV1 is unchanged from 1.12 L to 1.15 L. The total lung capacity is unchanged from 2.98 L to 3.11 L. The functional residual capacity is unchanged from 1.72 L to 1.81 L. The residual volume is unchanged from 1.37 L to 1.29 L. The diffusing capacity unadjusted for hemoglobin and carboxyhemoglobin is unchanged from 8.3 to 7.4. The diffusing capacity adjusted for alveolar volume is decreased from 3.81 L to 3.11 L Impression: There is a combined obstructive and restrictive ventilatory abnormality.? There are no guidelines to assign the severity of obstruction and restriction with a combined abnormality.? In my opinion, given the mildly concave expiratory flow tracing and low normal FEV1:? FVC ratio and mild restrictive abnormality I would state there is a mild obstructive abnormality and a mild restrictive abnormality resulting in a moderately decreased FEV1.? There is no significant improvement after inhaling a single dose of albuterol.? The absolute diffusing capacity is moderately decreased and normalizes when corrected for alveolar volume. In comparison to previous pulmonary function testing on 03/10/2021 there has been a greater than anticipated time dependent decrease in the diffusing capacity adjusted for alveolar volume and no change in the FVC, FEV1, total lung capacity, functional residual capacity, residual volume or diffusing capacity unadjusted for hemoglobin and carboxyhemoglobin. Clinical correlation is recommended.
== END 2023-04-01 14:34 | disposition home or self-care (01) ==
LOC: ANHPFT 14:34
PROVIDERS: PCP Internal Medicine; Visit Provider Internal Medicine Pulmonary Disease
DX: J44.9 Chronic obstructive pulmonary disease, unspecified (principal)
CPT/HCPCS: 94060; 94618; 94726; 94729

== ENCOUNTER 2023-04-26 13:30 | Outpatient (RCR) | payer MEDICARE, SELFPAY | END 2023-06-14 14:29 | disposition home or self-care (01) | LOC: ANHCPREHAB 13:30 | PROVIDERS: PCP Internal Medicine; Visit Provider Internal Medicine Pulmonary Disease | DX: J44.9 Chronic obstructive pulmonary disease, unspecified (principal) | CPT/HCPCS: 94625 ==

== ENCOUNTER 2024-01-05 16:39 | Observation (INO) | payer MEDICARE, SELFPAY ==
--- NOTE | ~2024-01-05 | XR_ITS ---
XR chest 2V Ordering provider: Tonya Whaley APRN History: 78 years Female with . crackles in bases WITH WEAKNESS . Comparison: May 30, 2021 FINDINGS: MEDIASTINUM: The cardiac silhouette is not enlarged. Postoperative changes in the mediastinum. Device is projected over the left chest. Congestive gianna. LUNGS: No infiltrates, effusions or pneumothorax. Prominent markings in the lower lobes. OTHER: No free air under the diaphragm. IMPRESSION: No acute cardiopulmonary pathology. Reviewed, dictated and finalized at location A.
[2024-01-05 16:47] VITALS: BP 120/88; PULSE 96; RESP 20; TEMP 36.6; O2SAT 97
--- NOTE | 2024-01-05 18:54 | ED.WEAKNESS ---
HPI - Weakness General Chief complaint: Weakness <Tonya Whaley APRN - Last Filed: 01/05/24 18:58> Stated complaint: generalized weakness <Tonya Whaley APRN - Last Filed: 01/05/24 18:58> Time Seen by Provider: 01/05/24 18:45 <Tonya Whaley APRN - Last Filed: 01/05/24 18:58> Focused HPI: Patient is a 78-year-old female who presents to the ER stating I think it's time for me to be placed in a fci. She has no acute complaints at this time. Patient reports she has a history of AFib, CHF, bilateral lower extremity edema, COPD, CKD, and diabetes. She endorses she has little muscle mass left because she is always immobile. Patient reports she can not take care of herself anymore and knows it is time for her to move into a place where she can get more help. She denies any current chest pain, shortness a breath, signs of illness, or one-sided numbness/weakness/tingling. Patient reports she is on 2-1/2 to 3 L nasal cannula oxygen at baseline but did not bring it with her to the ER. GENERAL: Well-appearing, well-nourished, and in no acute distress. HEAD: Normocephalic, atraumatic. CHEST: Clear to auscultation. ?No respiratory distress. HEART: Regular rate and rhythm.? NEURO: ?Alert and oriented x3. Patient screened in triage and initial orders placed.? ?Additional care and disposition to be based upon?diagnostic testing and treatment. <Tonya Whaley APRN - Last Filed: 01/05/24 18:58> History of Present Illness HPI Narrative: I agree with the above HPI <Hector Cooper MD - Last Filed: 01/06/24 06:47> Related Data Home medications: Home Medications Medication Instructions Recorded Confirmed acetaminophen 650 mg 1,300 mg PO Q12H 11/19/19 01/06/24 tablet,extended release (Tylenol Arthritis Pain) cholecalciferol (vitamin D3) 125 125 mcg PO DAILY 11/19/19 01/06/24 mcg (5,000 unit) tablet insulin NPH isoph U-100 human 100 20 unit subcut Q12H 04/08/20 01/06/24 unit/mL subcutaneous suspension (Novolin N NPH U-100 Insulin isophane) citalopram 10 mg tablet 10 mg PO HS 05/30/21 01/06/24 furosemide 20 mg tablet 20 mg PO DAILY PRN swelling 05/30/21 01/06/24 alendronate 10 mg tablet 70 mg PO WEEKLY 03/17/23 01/06/24 atorvastatin 10 mg tablet 20 mg PO .QHS 03/17/23 01/06/24 omeprazole 20 mg capsule,delayed 20 mg PO DAILY 03/17/23 01/06/24 release metoprolol tartrate 50 mg tablet 50 mg PO BID 01/06/24 01/06/24 <Tonya Whaley APRN - Last Filed: 01/05/24 18:58> Allergies/Adverse reactions: Allergies Allergy/AdvReac Type Severity Reaction Status Date / Time bacitracin Allergy Intermediate FACE Verified 05/30/21 18:51 PUFFINESS neomycin Allergy Intermediate FACIAL Verified 05/30/21 18:51 PUFFINESS nickel Allergy Intermediate Rash Verified 05/30/21 18:51 nystatin Allergy Intermediate FACIAL Verified 05/30/21 18:51 PUFFINESS polymyxin B Allergy Intermediate FACIAL Verified 05/30/21 18:51 PUFFINESS triamcinolone Allergy Intermediate Rash Verified 05/30/21 18:51 Aminoglycosides Allergy Mild ANTIBIOTIC Verified 05/30/21 18:51 EAR DROP CAUSED RASH gramicidin D Allergy Mild FACE PUFFED Verified 05/30/21 18:51 latex Allergy Mild Rash W/ Verified 05/30/21 18:51 PROLONGED USE <Tonya Whaley APRN - Last Filed: 01/05/24 18:58> Review of Systems Review of Systems: All systems reviewed & are unremarkable except as noted in HPI and below <Hector Cooper MD - Last Filed: 01/06/24 06:47> [facility] Past Medical History Medical History: Medical History Atherosclerosis of both carotid arteries Benign tumor CAD (coronary artery disease) Carpal tunnel syndrome, bilateral upper limbs COPD (chronic obstructive pulmonary disease) Hypertension Recurrent falls Type 2 diabetes mellitus with hyperglycemia <Tonya Whaley APRN - Last Filed:
[2024-01-05 21:15] VITALS: PULSE 101; O2SAT 99
[2024-01-05 21:16] VITALS: BP 136/68; PULSE 101; RESP 19; TEMP 37; O2SAT 100
[2024-01-05 21:35] LABS: Basophils Absolute Auto 0.1 K/mm3 (0.0-0.1); Basophils Percent Auto 0.9 % (0.2-1.2); Eosinophils Absolute Auto 0.3 K/mm3 (0-0.3); Eosinophils Percent Auto 4.4 % (0-4.4); Hematocrit 25.6 % (37.0-47.0); Hemoglobin 7.6 g/dL (12.0-15.0); Immature Granulocyte Absolute 0.03 K/mm3 (0.00-0.031); Immature Granulocyte Percent A 0.5 % (0-0.5); Lymphocytes Absolute Auto 0.72 K/mm3 (0.9-3.2); Lymphocytes Percent Auto 11.3 % (18.3-44.2); Mean Corpuscular HGB Conc 29.7 g/dl (32-36); Mean Corpuscular Hemoglobin 23.1 pg (26-34); Mean Corpuscular Volume 77.8 fl (80-100); Mean Platelet Volume 10.8 fl (7.4-10.4); Monocytes Absolute Auto 0.8 K/mm3 (0.1-0.6); Monocytes Percent Auto 12.2 % (2.6-8.5); Neutrophils Absolute Auto 4.5 K/mm3 (1.3-6.7); Neutrophils Percent Auto 70.7 % (45.5-73.1); Platelet Count Result 216 k/mm3 (150-375); Red Blood Count 3.29 M/mm3 (4.2-5.4); Red Cell Distribution Width 17.8 % (11.5-14.5); White Blood Count 6.4 K/mm3 (4.5-10.0)
[2024-01-05 21:44] LABS: Alanine Aminotransferase 14 U/L (6-35); Alkaline Phosphatase 50 U/L (38-126); Anion Gap 9 mmol/L (4-12); Aspartate Amino Transferase 28 U/L (14-36); Bilirubin,Total 0.6 mg/dL (0.2-1.3); Blood Urea Nitrogen 24 mg/dL (7-17); Calcium 9.6 mg/dL (8.4-10.2); Carbon Dioxide 29 mmol/L (22-30); Chloride 98 mmol/L (98-107); Estimated Glomerular Filt Rate > 60; Glucose 158 mg/dL (65-110); Potassium 5.1 mmol/L (3.4-5.0); Sodium 136 mmol/L (137-145)
[2024-01-05 21:47] LABS: INR 1.4; Prothrombin Time 17.5 Seconds (11.1-14.7)
[2024-01-05 21:48] LABS: Add Urine Microscopic? NO; Appearance Urine Clear (Clear); Bilirubin Urine Negative (Negative); Blood Urine Negative (Negative); Color Urine Yellow (Yellow); Glucose Urine UA Negative (Negative); Ketones Urine Negative (Negative); Leukocyte Esterase Ur Negative LEU/UL (Negative); Nitrate Urine Negative (Negative); Protein Urine Negative (Negative); Specific Grav Ur 1.016 (1.001-1.035); Urobilinogen Urine 0.2 mg/dL (<2.0); pH Urine 5.5 (5.0-9.0)
[2024-01-05 21:48] LABS: Partial Thromboplastin Time 34.1 Seconds (22.3-36.8)
[2024-01-05 21:58] LABS: Platelet Estimate Adequate (Adequate)
[2024-01-05 21:59] LABS: Hypochromasia 1+; Large Platelets Present; Ovalocytes 1+; Schistocytes None Seen
[2024-01-05 22:11] LABS: Influenza A QL RT-PCR Negative (Negative); Influenza B QL RT-PCR Negative (Negative); RSV RNA, RT-PCR Negative (Negative); SARS-CoV-2 RNA PCR Negative (Negative)
[2024-01-05 22:50] LABS: Reticulocyte Hemoglobin Conten 22.3 pg (28.2-36.6); Reticulocyte Percent 1.54 % (0.7-4.3); Reticulocytes Absolute 0.05 10^6/uL (0.02-0.10)
[2024-01-05 23:11] LABS: Iron 26 ug/dL (37-170)
[2024-01-05 23:19] LABS: Transferrin 236 mg/dL (206-381)
[2024-01-05 23:20] LABS: Percent Iron Saturation 8 % (20-50)
[2024-01-05 23:37] VITALS: BP 110/60; PULSE 82; RESP 15; TEMP 36.6; O2SAT 100
[2024-01-05 23:52] VITALS: BMI 25.4
[2024-01-06] VITALS (10 sets, daily range): BP systolic 107–126; BP diastolic 42–76; PULSE 80–102; RESP 16–20; TEMP 36.8–37.6; O2SAT 98–100; BMI 25.4
--- NOTE | 2024-01-06 00:06 | ADMGEN ---
This patient, Beatris Barrientos, was admitted to 3 [facility] Surg Room 332-02. Patient/family oriented to hospital policies and general routines including ID bracelet, bed and alarms, visiting hours, pain management, procedures, bathroom and other care routines, personal items, smoking policy, room service/diet, and visiting hours. Information on how to activate the Rapid Response Team has been discussed. Patient/Family are encouraged to report perceived risks to care and to ask questions if they do not understand what they are told or what they should do.
--- NOTE | 2024-01-06 08:02 | PM.IMHP ---
H&P: HPI History of Present Illness Date/Time: 01/06/24 08:02 Chief Complaint: weakness Narrative: 78 year old female with past medical history of coronary artery disease, hypertension, atrial fibrillation, COPD (2-3 L NC baseline), CHF, and diabetes presents to the hospital for weakness and the inability to care for herself anymore. Patient states that for the last few months she has been noticeably weaker in her arms and legs. Since that time she has been using a cane to ambulate throughout her house. She notes that she last fell approximately 3-4 months ago after losing her balance, she denies falling since. She denies dizziness/lightheadedness with ambulation. She notes that she has lost approximately 10-20 lb in the last 3 month despite having a good appetite. she denies chest pain, shortness a breath, nausea vomiting, abdominal pain, and changes in bowel/bladder. Of note patient was recently evicted from her apartment a few months ago and has been staying with her friend. She states that she came to the hospital for residential placement. Discussed code status with patient and she wishes to be a DNR at this time. Updates made to patients code status. ED workup: Vitals stable. CBC without leukocytosis, but with anemia, H/H 7.6/25.6 (baseline hgb 10-11). Hemoccult negative on digital rectal exam. No signs of active bleeding. Iron panel showing iron 26, TIBC 316, % saturation 8, ferritin 51.1. Started on iron supplementation. CMP with slightly elevated potassium at 5.1. BUN/Cr 24/0.8 with GFR > 60. Glucose 158. Urine non concerning for infection. Chest XR showing no acute cardiopulmonary pathology. Review of Systems Review of Systems: All systems reviewed & are unremarkable except as noted in HPI and below [facility] Past Medical History Medical History (Updated 01/06/24 @ 11:49 by Sridevi Kenyon PA-C) Atherosclerosis of both carotid arteries Atrial fibrillation Benign tumor CAD (coronary artery disease) Carpal tunnel syndrome, bilateral upper limbs COPD (chronic obstructive pulmonary disease) Hypertension Recurrent falls Type 2 diabetes mellitus with hyperglycemia Surgical History Surgical History History of appendectomy History of carpal tunnel release History of cholecystectomy History of loop recorder History of quadruple bypass History of total knee arthroplasty Left knee History of tubal ligation Hx of CABG 2003, 4 vessels Family History Family History Father Family history of cardiovascular disease Sibling Family history of cardiovascular disease Mother Family history of arthritis Family history of malignant neoplasm of breast in first degree relative Social History Social History (Updated 01/06/24 @ 11:52 by Sridevi Kenyon PA-C) Social History: She has 2 sons and is . recently evicted from her apartment a month or so ago and is now living with her friend, Phil, his and 4 cats. The patient does not have a power criminal defense attorney. She is retired from a [email or web address]. Code status DNR Smoking packs per day: 2 Smoking cigarettes per day: 40.0 Years smoked: 30 Smoking pack-years: 60.00 Smoking status: Former smoker Tobacco type: cigarettes Second hand tobacco smoke exposure: No Smoking end date: 04/18/02 Alcohol intake: never Substance use: never Substance use type: does not use Do You Feel Safe in your Home?: Yes Lack of Transportation: YES Lack of Food: Sometimes True Current Housing: I Do Not Have Housing Concerned About Future Housing: YES Difficulty Paying Gas/Electric Bills: YES Difficulty Paying for Meds: YES Currently Unemployed: No Education: High School Diploma/GED Difficulty w/ Childcare or Family Care: No Living arrangements: alone Occupation/Education: retired Gender identity (if verbalized by the patient
[2024-01-06 08:36] LABS: Basophils Absolute Auto 0.1 K/mm3 (0.0-0.1); Basophils Percent Auto 1.1 % (0.2-1.2); Eosinophils Absolute Auto 0.4 K/mm3 (0-0.3); Eosinophils Percent Auto 7.6 % (0-4.4); Hematocrit 25.5 % (37.0-47.0); Hemoglobin 7.4 g/dL (12.0-15.0); Immature Granulocyte Absolute 0.01 K/mm3 (0.00-0.031); Immature Granulocyte Percent A 0.2 % (0-0.5); Lymphocytes Absolute Auto 0.56 K/mm3 (0.9-3.2); Lymphocytes Percent Auto 10.7 % (18.3-44.2); Mean Corpuscular Hemoglobin 22.8 pg (26-34); Mean Corpuscular Volume 78.5 fl (80-100); Mean Platelet Volume 11.8 fl (7.4-10.4); Monocytes Absolute Auto 0.7 K/mm3 (0.1-0.6); Monocytes Percent Auto 12.6 % (2.6-8.5); Neutrophils Absolute Auto 3.6 K/mm3 (1.3-6.7); Neutrophils Percent Auto 67.8 % (45.5-73.1); Platelet Count Result 207 k/mm3 (150-375); Red Blood Count 3.25 M/mm3 (4.2-5.4); Red Cell Distribution Width 17.9 % (11.5-14.5); White Blood Count 5.3 K/mm3 (4.5-10.0)
[2024-01-06 09:04] LABS: Alanine Aminotransferase 12 U/L (6-35); Albumin Level 3.7 g/dL (3.5-5.1); Alkaline Phosphatase 43 U/L (38-126); Anion Gap 6 mmol/L (4-12); Aspartate Amino Transferase 27 U/L (14-36); Bilirubin,Total 0.7 mg/dL (0.2-1.3); Blood Urea Nitrogen 21 mg/dL (7-17); Calcium 9.3 mg/dL (8.4-10.2); Carbon Dioxide 32 mmol/L (22-30); Chloride 99 mmol/L (98-107); Estimated CRCL calculation 37 ml/min; Estimated Glomerular Filt Rate > 60; Glucose 182 mg/dL (65-110); Potassium 4.5 mmol/L (3.4-5.0); Sodium 137 mmol/L (137-145)
[2024-01-06 10:19] LABS: Anisocytosis 1+; Hypochromasia 2+; Platelet Estimate Adequate (Adequate); Schistocytes None Seen
[2024-01-06] MEDS: ENOXAPARIN 40 MG/0.4 ML SYRINGE SUB-Q (10:58)
[2024-01-06] MEDS: METOPROLOL TARTRATE 50 MG TAB PO ×2 (10:58→20:16)
[2024-01-06] MEDS: PANTOPRAZOLE 40 MG TABLET PO (10:58)
[2024-01-06] MEDS: FERROUS SULFATE 325 MG TABLET DR PO (10:58)
[2024-01-06 12:04] LABS: Glucose Point of Care 161 mg/dl (65-105)
[2024-01-06 16:55] LABS: Glucose Point of Care 173 mg/dl (65-105)
[2024-01-06] MEDS: CITALOPRAM HYDROBROMIDE 10 MG TABLET PO (20:16)
[2024-01-06] MEDS: ATORVASTATIN 20 MG TABLET PO (20:16)
[2024-01-06 20:36] LABS: Glucose Point of Care 226 mg/dl (65-105)
[2024-01-07] VITALS (14 sets, daily range): BP systolic 103–136; BP diastolic 49–72; PULSE 70–95; RESP 16–116; TEMP 36.7–37.4; O2SAT 95–100
[2024-01-07 06:17] LABS: Basophils Absolute Auto 0.1 K/mm3 (0.0-0.1); Basophils Percent Auto 0.9 % (0.2-1.2); Eosinophils Absolute Auto 0.3 K/mm3 (0-0.3); Eosinophils Percent Auto 5.5 % (0-4.4); Hematocrit 22.9 % (37.0-47.0); Immature Granulocyte Absolute 0.02 K/mm3 (0.00-0.031); Immature Granulocyte Percent A 0.4 % (0-0.5); Lymphocytes Absolute Auto 0.61 K/mm3 (0.9-3.2); Lymphocytes Percent Auto 11.3 % (18.3-44.2); Mean Corpuscular HGB Conc 28.8 g/dl (32-36); Mean Corpuscular Hemoglobin 22.4 pg (26-34); Mean Corpuscular Volume 77.9 fl (80-100); Mean Platelet Volume 10.4 fl (7.4-10.4); Monocytes Absolute Auto 0.6 K/mm3 (0.1-0.6); Monocytes Percent Auto 11.8 % (2.6-8.5); Neutrophils Absolute Auto 3.8 K/mm3 (1.3-6.7); Neutrophils Percent Auto 70.1 % (45.5-73.1); Platelet Count Result 163 k/mm3 (150-375); Red Blood Count 2.94 M/mm3 (4.2-5.4); Red Cell Distribution Width 17.8 % (11.5-14.5); White Blood Count 5.4 K/mm3 (4.5-10.0)
[2024-01-07 06:37] LABS: Alanine Aminotransferase 11 U/L (6-35); Albumin Level 3.6 g/dL (3.5-5.1); Alkaline Phosphatase 39 U/L (38-126); Anion Gap 5 mmol/L (4-12); Aspartate Amino Transferase 19 U/L (14-36); Bilirubin,Total 0.5 mg/dL (0.2-1.3); Blood Urea Nitrogen 23 mg/dL (7-17); Carbon Dioxide 31 mmol/L (22-30); Chloride 98 mmol/L (98-107); Estimated CRCL calculation 37 ml/min; Estimated Glomerular Filt Rate > 60; Glucose 161 mg/dL (65-110); Potassium 4.5 mmol/L (3.4-5.0); Sodium 134 mmol/L (137-145)
[2024-01-07 06:48] LABS: Hemoglobin 6.6 g/dL (12.0-15.0)
[2024-01-07 07:10] LABS: Hemoglobin A1C 6.5 % (<5.7)
--- NOTE | 2024-01-07 07:12 | PM.IMPN ---
Progress Note: A&P Assessment and Plan (1) Adult failure to thrive: Code(s): R62.7 - Adult failure to thrive Status: Acute Assessment and Plan: Presents to the hospital for weakness and the inability to care for herself anymore. Patient states that for the last few months she has been noticeably weaker in her arms and legs needing a cane to ambulate. She notes that she last fell approximately 3-4 months ago after losing her balance, she denies falling since. Lost approximately 10-20 lb in the last 3 month despite having a good appetite. PT/OT ordered Care coordination following for placement (2) Iron deficiency anemia: Code(s): D50.9 - Iron deficiency anemia, unspecified Status: Acute Assessment and Plan: H/H 7.6/25.6 on admission. Previously 10-11 in 2021. - Hemoccult negative in ED - No signs of active bleeding - Iron panel: iron 26, TIBC 316, % saturation 8, ferritin 51.1. - Started on iron supplementation. - Monitor - Transfuse if Hgb < 7 01/06: - H/H 6.6/22.9, now s/p pRBC transfusion. H/H 8.8 following transfusion. - No active signs of bleeding - Increased iron supplementation to BID (3) Atrial fibrillation: Code(s): I48.91 - Unspecified atrial fibrillation Status: Acute Assessment and Plan: Chronic, rate controlled. Not on anticoagulation. - Continue metoprolol 50 mg BID - Monitor (4) Hyperlipidemia: Qualifiers: Hyperlipidemia type: unspecified Qualified Code(s): E78.5 - Hyperlipidemia, unspecified Code(s): E78.5 - Hyperlipidemia, unspecified Status: Acute Assessment and Plan: Chronic, continue home medication - atorvastatin 20 mg daily - monitor (5) Hypertension: Code(s): I10 - Essential (primary) hypertension Status: Acute Assessment and Plan: Chronic, well controlled on home medications. - Continue metoprolol 50 mg BID - Monitor Subjective Date/time seen: 01/07/24 07:12 Interval history: 78 year old female with past medical history of coronary artery disease, hypertension, atrial fibrillation, COPD (2-3 L NC baseline), CHF, and diabetes presents to the hospital for weakness and the inability to care for herself anymore. Patient is pleasant lying comfortably in bed. She has no complaints at this time, denying chest pain, shortness a breath, nausea/vomiting, and abdominal pain. Continues to work with PT/OT who recommended a continued therapy. Care coordination has placement at a SNF at discharge. Patient was noted to a hemoglobin level below 7 on a.m. labs. She is now s/p transfusion. H/H level responded appropriately to transfusion and is now 8.8. Review of Systems Review of Systems: All systems reviewed & are unremarkable except as noted in HPI and below Exam Narrative: AF HR 79 RR 16 SpO2 99 2L NC (baseline) BP 131/62 General: elderly female in no acute respiratory distress who is nontoxic appearing, lying semi recumbent in bed. HEENT: Normocephalic. Atraumatic. Extraocular movement intact. Sclera clear and anicteric. No facial asymmetry. Chest: Lungs are clear to auscultation bilaterally. No wheezes or crackles. CV: Heart was irregular rate and rhythm. S1-S2. No murmurs, gallops, or rubs. Abd: Abdomen was soft. Nontender. Nondistended. Positive bowel sounds. No organomegaly or masses. Ext: No clubbing, cyanosis, or edema. 2+ DP pulses bilaterally. Neuro: Patient is alert and oriented x4. Cranial nerves 2-12 are intact. Speech is clear. Objective Data Vital Signs Vital Signs: Vital Signs - 24 hr 01/06/24 10:30 01/06/24 10:58 01/06/24 14:13 Temperature Pulse Rate 100 Respiratory Rate Blood Pressure Pulse Oximetry 98 Oxygen Delivery Nasal Cannula Nasal Cannula Oxygen Flow Rate 2 2.5 01/06/24 16:00 01/06/24 20:16 01/06/24 22:07 Temperature 98.8 F 98.2 F Pulse Rate 82 80 82 Respiratory Rate 18 16 Blood Pressure 126/62 109/76
[2024-01-07 07:35] LABS: Hypochromasia 2+; Microcytosis 1+ (NORMAL); Platelet Estimate Adequate (Adequate); Schistocytes None Seen
[2024-01-07 08:04] LABS: Glucose Point of Care 161 mg/dl (65-105)
[2024-01-07] MEDS: SODIUM CHLORIDE 0.9% IV 250 ML 30 ML IV CONT (08:44)
[2024-01-07] MEDS: FUROSEMIDE 20 MG TABLET PO (08:49)
[2024-01-07] MEDS: METOPROLOL TARTRATE 50 MG TAB PO ×2 (08:49→20:41)
[2024-01-07] MEDS: FERROUS SULFATE 325 MG TABLET DR PO ×2 (08:49→16:18)
[2024-01-07] MEDS: PANTOPRAZOLE 40 MG TABLET PO (08:49)
[2024-01-07] MEDS: ENOXAPARIN 40 MG/0.4 ML SYRINGE SUB-Q (08:49)
[2024-01-07 11:59] LABS: Glucose Point of Care 206 mg/dl (65-105)
[2024-01-07] MEDS: INSULIN ASPART (*BKC) 100 UNITS/ML SUB-Q (12:02)
[2024-01-07 14:29] LABS: Hematocrit 28.9 % (37.0-47.0); Hemoglobin 8.8 g/dL (12.0-15.0)
[2024-01-07 16:48] LABS: Glucose Point of Care 167 mg/dl (65-105)
[2024-01-07 20:24] LABS: Glucose Point of Care 218 mg/dl (65-105)
[2024-01-07] MEDS: CITALOPRAM HYDROBROMIDE 10 MG TABLET PO (20:41)
[2024-01-07] MEDS: ATORVASTATIN 20 MG TABLET PO (20:41)
[2024-01-08 06:00] VITALS: BP 120/65; PULSE 76; RESP 20; TEMP 36.2; O2SAT 100
[2024-01-08 06:24] LABS: Basophils Absolute Auto 0.1 K/mm3 (0.0-0.1); Basophils Percent Auto 1.2 % (0.2-1.2); Eosinophils Absolute Auto 0.4 K/mm3 (0-0.3); Eosinophils Percent Auto 7.6 % (0-4.4); Hematocrit 27.7 % (37.0-47.0); Hemoglobin 8.2 g/dL (12.0-15.0); Immature Granulocyte Absolute 0.02 K/mm3 (0.00-0.031); Immature Granulocyte Percent A 0.4 % (0-0.5); Lymphocytes Absolute Auto 0.58 K/mm3 (0.9-3.2); Lymphocytes Percent Auto 11.3 % (18.3-44.2); Mean Corpuscular HGB Conc 29.6 g/dl (32-36); Mean Corpuscular Hemoglobin 23.6 pg (26-34); Mean Corpuscular Volume 79.6 fl (80-100); Mean Platelet Volume 11.4 fl (7.4-10.4); Monocytes Absolute Auto 0.7 K/mm3 (0.1-0.6); Monocytes Percent Auto 12.6 % (2.6-8.5); Neutrophils Absolute Auto 3.5 K/mm3 (1.3-6.7); Neutrophils Percent Auto 66.9 % (45.5-73.1); Platelet Count Result 167 k/mm3 (150-375); Red Blood Count 3.48 M/mm3 (4.2-5.4); Red Cell Distribution Width 17.7 % (11.5-14.5); White Blood Count 5.2 K/mm3 (4.5-10.0)
[2024-01-08 06:36] LABS: Alanine Aminotransferase 11 U/L (6-35); Albumin Level 3.5 g/dL (3.5-5.1); Alkaline Phosphatase 40 U/L (38-126); Anion Gap 7 mmol/L (4-12); Aspartate Amino Transferase 23 U/L (14-36); Bilirubin,Total 0.7 mg/dL (0.2-1.3); Blood Urea Nitrogen 19 mg/dL (7-17); Calcium 8.7 mg/dL (8.4-10.2); Carbon Dioxide 28 mmol/L (22-30); Chloride 99 mmol/L (98-107); Estimated CRCL calculation 42 ml/min; Estimated Glomerular Filt Rate > 60; Glucose 143 mg/dL (65-110); Potassium 4.5 mmol/L (3.4-5.0); Sodium 134 mmol/L (137-145)
[2024-01-08 07:28] VITALS: O2SAT 97
[2024-01-08 07:30] LABS: Hypochromasia 1+; Platelet Estimate Adequate (Adequate)
[2024-01-08 07:31] LABS: Anisocytosis 1+; Microcytosis 1+ (NORMAL); Schistocytes None Seen
[2024-01-08 08:00] VITALS: O2SAT 97
[2024-01-08] MEDS: FUROSEMIDE 20 MG TABLET PO (08:58)
[2024-01-08] MEDS: FERROUS SULFATE 325 MG TABLET DR PO (08:58)
[2024-01-08 08:59] VITALS: PULSE 72
[2024-01-08] MEDS: PANTOPRAZOLE 40 MG TABLET PO (08:59)
[2024-01-08] MEDS: ENOXAPARIN 40 MG/0.4 ML SYRINGE SUB-Q (08:59)
[2024-01-08] MEDS: METOPROLOL TARTRATE 50 MG TAB PO (08:59)
--- NOTE | 2024-01-08 11:54 | PM.DS ---
DS: Admitting Diagnosis Discharge Date 01/08/2024 Admitting Diagnosis adult failure to thrive iron deficiency anemia atrial fibrillation hyperlipidemia hypertension DS: Discharge Diagnosis Discharge Diagnosis (1) Adult failure to thrive: Code(s): R62.7 - Adult failure to thrive Status: Acute (2) Iron deficiency anemia: Code(s): D50.9 - Iron deficiency anemia, unspecified Status: Acute (3) Atrial fibrillation: Code(s): I48.91 - Unspecified atrial fibrillation Status: Acute (4) Hyperlipidemia: Qualifiers: Hyperlipidemia type: unspecified Qualified Code(s): E78.5 - Hyperlipidemia, unspecified Code(s): E78.5 - Hyperlipidemia, unspecified Status: Acute (5) Hypertension: Code(s): I10 - Essential (primary) hypertension Status: Acute (6) Diabetes: Code(s): E11.9 - Type 2 diabetes mellitus without complications Status: Acute DS: Summary Hospital Course Reason for hospitalization: adult failure to thrive iron deficiency anemia diabetes atrial fibrillation hyperlipidemia hypertension Hospital Course: 78 year old female with past medical history of coronary artery disease, hypertension, atrial fibrillation, COPD (2-3 L NC baseline), CHF, and diabetes presents to the hospital for weakness and the inability to care for herself anymore. Patient states that for the last few months she has been noticeably weaker in her arms and legs. On admission there was no signs of active infection on labs, imaging or urinalysis. Patient was anemic with an H/H 7.6/25.6. Hemoccult negative on digital rectal exam. No signs of active bleeding. Iron panel showing iron 26, TIBC 316, % saturation 8, ferritin 51.1. Started on iron supplementation. Patient hemoglobin lowered to less than 7 and she required a unit pRBC during admission. Her levels responded appropriately and her H/H remained stable. Will have her obtain a CBC in 3 days to reassess H/H. Patient has history of diabetes. Per chart review it appeared patient was on NPH, however this has not been filled since 2019. An A1c was obtained and is 6.5. She was placed on sliding scale insulin during admission and was started on metformin at discharge. Call made to [facility] to ensure patient did not receive the NPH. Prior to discharge patient denied chest pain, shortness of breath, nausea/vomiting and abdominal pain. patient discharged to SNF in a stable condition. She is to take her medications as prescribed and follow-up with her primary care provider in 1 week. Status at Discharge Functional status at discharge: uses cane/walker Time Spent with Patient Time attestation: Total time spent providing and/or coordinating discharge services: Time spent: Greater than 30 minutes Exam Narrative: AF HR 76 RR 20 SpO2 100 2L NC (baseline) BP 130/65 General: elderly female in no acute respiratory distress who is nontoxic appearing, lying semi recumbent in bed. HEENT: Normocephalic. Atraumatic. Extraocular movement intact. Sclera clear and anicteric. No facial asymmetry. Chest: Lungs are clear to auscultation bilaterally. No wheezes or crackles. CV: Heart was irregular rate and rhythm. S1-S2. No murmurs, gallops, or rubs. Abd: Abdomen was soft. Nontender. Nondistended. Positive bowel sounds. No organomegaly or masses. Ext: No clubbing, cyanosis, or edema. 2+ DP pulses bilaterally. Neuro: Patient is alert and oriented x4. Speech is clear. DS: Data Data Completed and Pending Completed studies during hospitalization: chest xr Labs on day of discharge: Labs from last 24 hours 01/08/24 01/08/24 01/07/24 11:35 05:35 20:20 WBC 5.2 RBC 3.48 L Hgb 8.2 L Hct 27.7 L MCV 79.6 L MCH 23.6 L D MCHC 29.6 L RDW 17.7 H Plt Count 167 MPV 11.4 H Immature Gran % (Auto) 0.4 Neut % (Auto) 66.9 Lymph % (Auto) 11.3 L Holmes % (Auto) 12.6 H Eos % (Auto)
[2024-01-08 12:20] LABS: SARS-CoV-2 RNA PCR Negative (Negative)
== END 2024-01-08 13:38 ==
LOC: ANHED 22:45 → ANH3MEDSUR 01-06 06:49
PROVIDERS: Admitting Provider Internal Medicine; Emergency Provider Emergency Medicine; PCP Internal Medicine; Visit Provider Student in an Organized Health Care Education/Training Program
DX: R62.7 Adult failure to thrive (principal); Z68.25 Body mass index [BMI] 25.0-25.9, adult; I25.10 Atherosclerotic heart disease of native coronary artery without angina pectoris; D50.9 Iron deficiency anemia, unspecified; I48.91 Unspecified atrial fibrillation; E78.5 Hyperlipidemia, unspecified; I11.0 Hypertensive heart disease with heart failure; I50.9 Heart failure, unspecified; J44.9 Chronic obstructive pulmonary disease, unspecified; E11.9 Type 2 diabetes mellitus without complications; Z87.891 Personal history of nicotine dependence; Z59.10 Inadequate housing, unspecified; Z99.81 Dependence on supplemental oxygen; Z20.822 Contact with and (suspected) exposure to COVID-19; Z95.1 Presence of aortocoronary bypass graft; Z66 Do not resuscitate
CPT/HCPCS: 36415; 36430; 71046; 80053; 81003; 82728; 82948; 83036; 83540; 83550; 84466; 85014; 85018; 85025; 85046; 85610; 85730; 86850; 86900; 86901; 86920; 87635; 87637; 96372; 97161; 97165; 99285; A9270; G0378; J1650; J1815; J7050; P9016